=== PATIENT | female | born 1980 | race Caucasian/White ===

== ENCOUNTER 2024-10-13 15:15 | Inpatient (IN) | payer OTHER, SELFPAY ==
[2024-10-13] VITALS (10 sets, daily range): BP systolic 99–129; BP diastolic 64–78; PULSE 88–111; RESP 16–23; TEMP 36.4–37.2; O2SAT 99–100; BMI 22.8
--- NOTE | ~2024-10-13 | CT_ITS ---
EXAMINATION: CT abdomen pelvis w con DATE: 10/13/2024 17:11 INDICATION: Ascites and jaundice TECHNIQUE: Computed tomography (CT) of the abdomen and pelvis was performed with 100 mL Omnipaque-350 intravenous contrast. Automated exposure control and iterative reconstruction technique were employe d. The dose-length product was 333.53 mGy-cm. COMPARISON: None FINDINGS: Mild discoid atelectasis at the lingula. Heart size is normal. No pericardial or pleural effusion. Di ffuse hepatic steatosis with subtle liver surface nodularity consistent with cirrhosis. Mild splenome ellen measuring 14.3 cm in maximal length which along with gastroesophageal varices consistent with po rtal venous hypertension. Multiple small calcified gallstones the dependent aspect of the normal nond ilated gallbladder. No intra-axial hepatic biliary ductal dilation. Pancreas, bilateral adrenal gland s and kidneys are normal. Bowels including the appendix are normal. Moderate amount of ascites throug hout the abdomen and pelvis. Decompressed bladder is unremarkable. T-shaped IUD in expected position in the anteverted uterus. No pathologically enlarged abdominal or pelvic lymphadenopathy. Bilateral adnexa are unremarkable. Bones are unremarkable. IMPRESSION: 1. Combination of cirrhosis and diffuse hepatic steatosis. 2. Mild splenomegaly which along with gastroesophageal varices are consistent with secondary venous h ypertension. 3. Moderate amount of ascites. 4. T-shaped IUD in expected position within the anteverted uterus. Reviewed, dictated and finalized at location A. IMPRESSION: 1. Combination of cirrhosis and diffuse hepatic steatosis. 2. Mild splenomegaly which along with gastroesophageal varices are consistent w ith secondary venous hypertension. 3. Moderate amount of ascites. 4. T-shaped IUD in expected position within the anteverted uterus.
--- NOTE | ~2024-10-13 | US_ITS ---
EXAMINATION: US paracentesis abd w/image DATE: 10/14/2024 15:39 INDICATION: Ascites. Liver failure. TECHNIQUE: The procedure and its risks and benefits were discussed with the patient. Potential risks discussed included bleeding and infection. The skin was prepped and draped in sterile fashion. 1% lid ocaine was used for local anesthesia. Under ultrasound guidance, a 5 Fr catheter with trochar was adv anced into the ascites in the left lower quadrant. Fluid was aspirated into vacuum bottles. The herman ter was removed, and a dressing was applied. There were no immediate complications. FINDINGS: Ultrasound images demonstrate ascites and the catheter within the fluid. IMPRESSION: 1. Successful ultrasound-guided paracentesis yielding 1700 mL of dark ramu-colored fluid. Reviewed, dictated and finalized at location A. IMPRESSION: 1. Successful ultrasound-guided paracentesis yielding 1700 mL of dark ramu-co lored fluid.
--- NOTE | ~2024-10-13 | XR_ITS ---
CHEST RADIOGRAPH CLINICAL HISTORY: dyspnea, swelling, hx alcoholism . COMPARISON: None available TECHNIQUE: Single portable view of the chest. FINDINGS The cardiomediastinal silhouette is unremarkable. The lungs are clear. Possible acute / subacute fracture deformity within the posterior margin of the right seventh rib. IMPRESSION: No focal infiltrate or effusion. Reviewed, dictated and finalized at location A.
--- NOTE | 2024-10-13 15:26 | ECG_ITS ---
Test Date: 2024-10-13 16:27:51 Measurements Intervals [place] Rate: 114 P: 34 TN: 119 QRS: 54 QRSD: 86 T: 53 QT: 335 QTc: 462 Interpretive Statements SINUS TACHYCARDIA WITH SHORT TN INTERVAL BASELINE WANDER- V2 ABNORMAL ECG No previous ECG available for comparison Electronically Signed On 10-13-2024 17:05:24 CDT by Barron Mock D.O.
--- NOTE | 2024-10-13 15:28 | ED.ABDPAIN ---
HPI - Abdominal Pain General Chief Complaint: Abdominal Pain <Susy Iqbal PA-C - Last Filed: 10/13/24 15:32> Stated Complaint: abd swelling <Susy Iqbal PA-C - Last Filed: 10/13/24 15:32> Time Seen by Provider: 10/13/24 17:08 <Susy Iqbal PA-C - Last Filed: 10/13/24 15:32> Focused HPI: 43-year-old female a reported history of alcohol abuse presents to the emergency department for jaundice for the past 2 weeks and abdominal bloating for the past week. She is also reporting shortness of breath and swelling to her lower extremities. She denies fever but endorses chills. States she is having abdominal discomfort due to the swelling but denies any focal pain. Patient states she was drinking a 5th a day with case of beer since she about 24 old, has been trying wean herself off. States she was or taking 4 shots a day for several months and then stopped drinking alcohol a day and half ago. She is reporting tremors. She denies headache, nausea or vomiting, hallucinations, seizure activity. She does endorse a history of alcohol withdrawal and hallucinations but denies seizures with alcohol withdrawal. She states she was told she needed to follow-up with a liver specialist by her PCP would he has not made an appointment. She states she is unsure if she has any no liver disease. GENERAL: Ill-appearing, jaundice, scleral icterus, coarse tremors at rest. CIWA is 12 HEAD: Normocephalic, atraumatic. CHEST: Clear to auscultation. ?No respiratory distress. ABD: Abdomen distended, mild tenderness in the epigastrium, no rebound or rigidity. No CVA tenderness HEART: Regular rate and rhythm.? NEURO: ?Alert and oriented x3. Patient screened in triage and initial orders placed.? ?Additional care and disposition to be based upon?diagnostic testing and treatment. <Susy Iqbal PA-C - Last Filed: 10/13/24 15:32> Focused HPI: 43-year-old female a reported history of alcohol abuse presents to the emergency department for jaundice for the past 2 weeks and abdominal bloating for the past week. She is also reporting shortness of breath and swelling to her lower extremities. She denies fever but endorses chills. States she is having abdominal discomfort due to the swelling but denies any focal pain. Patient states she was drinking a 5th a day with case of beer since she about 24 old, has been trying wean herself off. States she was taking 4 shots a day for several months and then stopped drinking alcohol a day and half ago. She is reporting tremors. She denies headache, nausea or vomiting, hallucinations, seizure activity. She does endorse a history of alcohol withdrawal and hallucinations but denies seizures with alcohol withdrawal. She states she was told she needed to follow-up with a liver specialist by her PCP would he has not made an appointment. She states she has no known liver disease. GENERAL: Ill-appearing, jaundice, scleral icterus, coarse tremors at rest. CIWA is 12 HEAD: Normocephalic, atraumatic. CHEST: Clear to auscultation. ?No respiratory distress. ABD: Abdomen distended, mild tenderness in the epigastrium, no rebound or rigidity. No CVA tenderness HEART: Regular rate and rhythm.? NEURO: ?Alert and oriented x3. Patient screened in triage and initial orders placed.? ?Additional care and disposition to be based upon?diagnostic testing and treatment. <Bethany Patterson PA-C - Last Filed: 10/14/24 02:26> Related Data Home Medications: Home Medications ?Medication ?Instructions ?Recorded ?Confirmed ?Last Taken ?Type multivitamin (Daily Multi-Vitamin 1 tablet PO DAILY 10/13/24 10/13/24 10/12/24 21:00 History tablet) <Susy Iqbal PA-C - Last Filed: 10/13/24 15:32> Allergies/Adverse Reactions: Allergies Allergy/AdvReac Type Severity Reaction Status Date / Time codeine Allergy Unknown Nausea and Verified 10/13/24 16:23 Vomiting <Susy Iqbal PA-C - Last Filed: 10/13/24 15:32> Review of Systems Review of Systems: All systems reviewed & are unremarkable except as noted in HPI and below <Bethany Patterson PA-C - Last Filed: 10/14/24 02:26> [facility] Past Medical History Medical History: Medical History (Updated 10/14/24 @ 02:40 by Karen Chandler DO) Continuous tobacco abuse History of alcohol abuse <Susy Iqbal PA-C - Last Filed: 10/13/24 15:32> Surgical History Surgical History: Surgical History (Updated 10/14/24 @ 02:08 by Karen Chandler DO) No history of previous surgery <Susy Iqbal PA-C - Last Filed: 10/13/24 15:32> Family History Family History: Family History (Updated 10/14/24 @ 02:29 by Karen Chandler DO) Mother Psychiatric illness History of bowel resection Father Unknown family medical history Grandparent Alcoholism <Susy Iqbal PA-C - Last Filed: 10/13/24 15:32> Social History Social History: Social History (Updated 10/14/24 @ 02:14 by Karen Chandler DO) Social History: The patient has had history of heavy alcohol use since early teens. She has smoked up to a pack a cigarettes per day since she was 18 but has cut back to 0.5 packs per day. She has 1 adult daughter. Code status: Full code Surrogate decision maker: Marino Garay (significant other) Smoking packs per day: 0.5 Smoking cigarettes per day: 10.0 Years smoked: 25 Smoking pack-years: 12.50 Smoking status: Current every day smoker Tobacco type: cigarettes Second hand tobacco smoke exposure: Yes Alcohol intake: current Drinks per week: 28 Substance use: never Do You Feel Safe in your Home?: Yes Lack of Transportation: YES Lack of Food: Never True Current Housing: I Have Housing Concerned About Future Housing: No Difficulty Paying Gas/Electric Bills: No Difficulty Paying for Meds: No Currently Unemployed: No Education: Trade/Vocational Certificate Difficulty w/ Childcare or Family Care: No Additional living arrangements comments: She lives with her boyfriend of 9 years and her 21-year-old daughter. She has a medium-sized dog. 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 Spiritual care concerns: Yes <Susy Iqbal PA-C - Last Filed: 10/13/24 15:32> Exam Narrative: GENERAL: Chronically ill-appearing, well-nourished, and in no acute distress. HEAD: Normocephalic, atraumatic. EYES: EOMI. Scleral icterus ENT: Nares clear, no rhinorrhea or epistaxis. Mucous membranes moist. Oropharynx without tonsillar hypertrophy exudate or other lesions. CHEST: Clear to auscultation. No respiratory distress. No wheezes rales or rhonchi HEART: Regular rate and rhythm. No murmur heard. Normal peripheral pulses. ABDOMEN: Soft, nontender, normal active bowel sounds. Distended EXTREMITIES: Normal range of motion. No edema. SKIN: Warm, dry. Jaundice NEURO: No focal deficits. Alert and oriented x3. PSYCH: Normal mood and affect <Bethany Patterson PA-C - Last Filed: 10/14/24 02:26> Course Course Emergency Course: Patient updated on her workup and need for admission <Bethany Patterson PA-C - Last Filed: 10/14/24 02:26> REAL ESTATE AGENT/BROKER/PA Physician Supervision For this patient encounter, I reviewed the REAL ESTATE AGENT/BROKER or PA documentation, treatment plan, and medical decision making; and I had [id number] time with this patient. <Anthony Eden MD - Last Filed: 10/14/24 02:56> Consultations Consultation #1: Spoke with Dr. Kiran about patient and workup. Would like paracentesis ordered with studies, he will give further recommendations from there. He will consult <Bethany Patterson PA-C - Last Filed: 10/14/24 02:26> Date: 10/13/24 <Bethany Patterson PA-C - Last Filed: 10/14/24 02:26> Consultation #2: Spoke with hospitalist about patient and workup who accepts admission <Bethany Patterson PA-C - Last Filed: 10/14/24 02:26> Date: 10/13/24 <Bethany Patterson PA-C - Last Filed: 10/14/24 02:26> Vital Signs Vital signs: Vital Signs Temperature 97.5 F L 10/13/24 15:22 Pulse Rate 111 H 10/13/24 15:22 Respiratory Rate 16 10/13/24 15:22 Blood Pressure 99/64 L 10/13/24 15:22 Pulse Oximetry 100 10/13/24 15:22 Oxygen Delivery Room Air 10/13/24 15:22 Temperature 99 F 10/14/24 00:00 Pulse Rate 101 H 10/14/24 02:00 Respiratory Rate 20 10/14/24 00:00 Blood Pressure 109/67 10/14/24 00:00 Pulse Oximetry 99 10/14/24 00:00 Oxygen Delivery Room Air 10/14/24 00:00 <Susy Iqbal PA-C - Last Filed: 10/13/24 15:32> Vital Signs Temperature 97.5 F L 10/13/24 15:22 Pulse Rate 111 H 10/13/24 15:22 Respiratory Rate 16 10/13/24 15:22 Blood Pressure 99/64 L 10/13/24 15:22 Pulse Oximetry 100 10/13/24 15:22 Oxygen Delivery Room Air 10/13/24 15:22 Temperature 99 F 10/14/24 00:00 Pulse Rate 101 H 10/14/24 02:00 Respiratory Rate 20 10/14/24 00:00 Blood Pressure 109/67 10/14/24 00:00 Pulse Oximetry 99 10/14/24 00:00 Oxygen Delivery Room Air 10/14/24 00:00 <Bethany Patterson PA-C - Last Filed: 10/14/24 02:26> Vital Signs Temperature 97.5 F L 10/13/24 15:22 Pulse Rate 111 H 10/13/24 15:22 Respiratory Rate 16 10/13/24 15:22 Blood Pressure 99/64 L 10/13/24 15:22 Pulse Oximetry 100 10/13/24 15:22 Oxygen Delivery Room Air 10/13/24 15:22 Temperature 99 F 10/14/24 00:00 Pulse Rate 101 H 10/14/24 02:00 Respiratory Rate 20 10/14/24 00:00 Blood Pressure 109/67 10/14/24 00:00 Pulse Oximetry 99 10/14/24 00:00 Oxygen Delivery Room Air 10/14/24 00:00 <Anthony Eden MD - Last Filed: 10/14/24 02:56> MDM - Abdominal Pain MDM Narrative Medical decision making narrative: Patient presents to the emergency department for worsening abdominal swelling and jaundice ongoing over the last several weeks. History of alcohol abuse. No previous known history of liver failure. She is afebrile and nontoxic appearing. Tachycardic upon arrival, this normalized without intervention. Blood pressure is stable. Cbc without leukocytosis. Hemoglobin is 10.5, platelets are 124. PT 16.2, INR 1.3 metabolic panel with total bili of 18.3, AST of 364, ALT 91. Lipase is normal. CT abdomen and pelvis shows cirrhosis and diffuse hepatic steatosis. Mild splenomegaly with gastroesophageal varices. Moderate amount of ascites. Spoke with Dr. Kiran about patient and workup. Would like paracentesis ordered with studies, he will give further recommendations from there. He will consult. Spoke with hospitalist about patient and workup who accepts admission <Bethany Patterson PA-C - Last Filed: 10/14/24 02:26> Differential Diagnosis Differential diagnosis: Likely pancreatitis and other (liver failure, alcohol abuse, alcohol withdrawal) <Bethany Patterson PA-C - Last Filed: 10/14/24 02:26> Lab Data Attestation: I reviewed the patient's lab results. <Bethany Patterson PA-C - Last Filed: 10/14/24 02:26> Result diagrams: 10/13/24 16:06 10/13/24 16:06 <Susy Iqbal PA-C - Last Filed: 10/13/24 15:32> Labs: Lab Results 10/13/24 10/13/24 10/13/24 Range/Units 16:06 16:29 16:34 WBC 7.9 (4.5-10.0) K/mm3 RBC 2.85 L (4.2-5.4) M/mm3 Hgb 10.5 L (12.0-15.0) g/dL Hct 31.7 L (37.0-47.0) % MCV 111.2 H (80-100) fl MCH 36.8 H (26-34) pg MCHC 33.1 (32-36) g/dl RDW 22.2 H (11.5-14.5) % Plt Count 124 L (150-375) k/mm3 MPV 11.5 H (7.4-10.4) fl Immature Gran % (Auto) Not Reportable Neut % (Auto) Not Reportable Lymph % (Auto) Not Reportable [place] % (Auto) Not Reportable Eos % (Auto) Not Reportable Baso % (Auto) Not Reportable Lymph # (Auto) Not Reportable [place] # (Auto) Not Reportable Eos # (Auto) Not Reportable Baso # (Auto) Not Reportable Abs Immat Gran (auto) Not Reportable Absolute Neuts (auto) Not Reportable Absolute Nucleated RBC Not Reportable Total Counted 100 Neutrophils % (Manual) 74 H (46-73) % Band Neutrophils % 5 (0-6) % Lymphocytes % (Manual) 12.0 L (18-44) % Monocytes % (Manual) 7 (3-9) % Eosinophils % (Manual) 2 (0-4) % Nucleated RBC % Not Reportable Abs Neuts (Manual) 6.24 (1.3-6.7) K/mm3 Abs Lymphs (Manual) 0.94 L (1.1-4.5) K/mm3 Abs Monocytes (Manual) 0.55 (0.1-0.90) K/mm3 Absolute Eos (Manual) 0.15 (0.02-0.50) K/mm3 Platelet Estimate Adequate (Adequate) Anisocytosis 3+ Macrocytosis 2+ (NORMAL) Schistocytes None seen PT 16.2 H (11.1-14.7) Seconds INR 1.3 APTT 39.4 H (22.3-36.8) Seconds Sodium 133 L (137-145) mmol/L Potassium 4.1 (3.4-5.0) mmol/L Chloride 99 (98-107) mmol/L Carbon Dioxide 23 (22-30) mmol/L Anion Gap 11 (4-12) mmol/L BUN 7 (7-17) mg/dL Creatinine 0.52 L (0.7-1.0) mg/dL Estim Creat Clear Calc 94 ml/min Estimated GFR > 60 (59 - ) Glucose 82 (65-110) mg/dL Lactic Acid 1.7 (0.7-2.0) mmol/L Calcium 9.1 (8.4-10.2) mg/dL Phosphorus 3.1 (2.5-4.5) mg/dL Magnesium 2.1 (1.6-2.3) mg/dL Total Bilirubin 18.3 H (0.2-1.3) mg/dL AST 364 H (14-36) U/L ALT 91 H (6-35) U/L Alkaline Phosphatase 371 H (38-126) U/L Troponin I < 0.012 (0.000-0.034) ng/mL NT-Pro-B Natriuret Pep 128 H (19.9-100) pg/mL Total Protein 7.3 (6.3-8.2) g/dL Albumin 3.2 L (3.5-5.1) g/dL Lipase 110 (23-300) U/L Urine Color Dark red H (Yellow) Urine Appearance Clear (Clear) Urine pH TNP Ur Specific [place] TNP Urine Protein TNP Urine Glucose (UA) TNP Urine Ketones TNP Ur Blood (Man) TNP Urine Nitrate TNP Urine Bilirubin TNP Urine Urobilinogen TNP Leukocyte Esterase Rfl TNP Urine RBC 0-2 (0-2) /hpf Urine WBC 0-5 (0-3) /hpf Ur Squamous Epith Cells Few (Few) /hpf Urine Bacteria 4+ H (None) /hpf POC Urine HCG, Qual Negative (Negative) Ethyl Alcohol < 10 (<10) mg/dL <Susy Iqbal PA-C - Last Filed: 10/13/24 15:32> Lab Results 10/13/24 10/13/24 10/13/24 Range/Units 16:06 16:29 16:34 WBC 7.9 (4.5-10.0) K/mm3 RBC 2.85 L (4.2-5.4) M/mm3 Hgb 10.5 L (12.0-15.0) g/dL Hct 31.7 L (37.0-47.0) % MCV 111.2 H (80-100) fl MCH 36.8 H (26-34) pg MCHC 33.1 (32-36) g/dl RDW 22.2 H (11.5-14.5) % Plt Count 124 L (150-375) k/mm3 MPV 11.5 H (7.4-10.4) fl Immature Gran % (Auto) Not Reportable Neut % (Auto) Not Reportable Lymph % (Auto) Not Reportable [place] % (Auto) Not Reportable Eos % (Auto) Not Reportable Baso % (Auto) Not Reportable Lymph # (Auto) Not Reportable [place] # (Auto) Not Reportable Eos # (Auto) Not Reportable Baso # (Auto) Not Reportable Abs Immat Gran (auto) Not Reportable Absolute Neuts (auto) Not Reportable Absolute Nucleated RBC Not Reportable Total Counted 100 Neutrophils % (Manual) 74 H (46-73) % Band Neutrophils % 5 (0-6) % Lymphocytes % (Manual) 12.0 L (18-44) % Monocytes % (Manual) 7 (3-9) % Eosinophils % (Manual) 2 (0-4) % Nucleated RBC % Not Reportable Abs Neuts (Manual) 6.24 (1.3-6.7) K/mm3 Abs Lymphs (Manual) 0.94 L (1.1-4.5) K/mm3 Abs Monocytes (Manual) 0.55 (0.1-0.90) K/mm3 Absolute Eos (Manual) 0.15 (0.02-0.50) K/mm3 Platelet Estimate Adequate (Adequate) Anisocytosis 3+ Macrocytosis 2+ (NORMAL) Schistocytes None seen PT 16.2 H (11.1-14.7) Seconds INR 1.3 APTT 39.4 H (22.3-36.8) Seconds Sodium 133 L (137-145) mmol/L Potassium 4.1 (3.4-5.0) mmol/L Chloride 99 (98-107) mmol/L Carbon Dioxide 23 (22-30) mmol/L Anion Gap 11 (4-12) mmol/L BUN 7 (7-17) mg/dL Creatinine 0.52 L (0.7-1.0) mg/dL Estim Creat Clear Calc 94 ml/min Estimated GFR > 60 (59 - ) Glucose 82 (65-110) mg/dL Lactic Acid 1.7 (0.7-2.0) mmol/L Calcium 9.1 (8.4-10.2) mg/dL Phosphorus 3.1 (2.5-4.5) mg/dL Magnesium 2.1 (1.6-2.3) mg/dL Total Bilirubin 18.3 H (0.2-1.3) mg/dL AST 364 H (14-36) U/L ALT 91 H (6-35) U/L Alkaline Phosphatase 371 H (38-126) U/L Troponin I < 0.012 (0.000-0.034) ng/mL NT-Pro-B Natriuret Pep 128 H (19.9-100) pg/mL Total Protein 7.3 (6.3-8.2) g/dL Albumin 3.2 L (3.5-5.1) g/dL Lipase 110 (23-300) U/L Urine Color Dark red H (Yellow) Urine Appearance Clear (Clear) Urine pH TNP Ur Specific [place] TNP Urine Protein TNP Urine Glucose (UA) TNP Urine Ketones TNP Ur Blood (Man) TNP Urine Nitrate TNP Urine Bilirubin TNP Urine Urobilinogen TNP Leukocyte Esterase Rfl TNP Urine RBC 0-2 (0-2) /hpf Urine WBC 0-5 (0-3) /hpf Ur Squamous Epith Cells Few (Few) /hpf Urine Bacteria 4+ H (None) /hpf POC Urine HCG, Qual Negative (Negative) Ethyl Alcohol < 10 (<10) mg/dL <Bethany Patterson PA-C - Last Filed: 10/14/24 02:26> Lab Results 10/13/24 10/13/24 10/13/24 Range/Units 16:06 16:29 16:34 WBC 7.9 (4.5-10.0) K/mm3 RBC 2.85 L (4.2-5.4) M/mm3 Hgb 10.5 L (12.0-15.0) g/dL Hct 31.7 L (37.0-47.0) % MCV 111.2 H (80-100) fl MCH 36.8 H (26-34) pg MCHC 33.1 (32-36) g/dl RDW 22.2 H (11.5-14.5) % Plt Count 124 L (150-375) k/mm3 MPV 11.5 H (7.4-10.4) fl Immature Gran % (Auto) Not Reportable Neut % (Auto) Not Reportable Lymph % (Auto) Not Reportable [place] % (Auto) Not Reportable Eos % (Auto) Not Reportable Baso % (Auto) Not Reportable Lymph # (Auto) Not Reportable [place] # (Auto) Not Reportable Eos # (Auto) Not Reportable Baso # (Auto) Not Reportable Abs Immat Gran (auto) Not Reportable Absolute Neuts (auto) Not Reportable Absolute Nucleated RBC Not Reportable Total Counted 100 Neutrophils % (Manual) 74 H (46-73) % Band Neutrophils % 5 (0-6) % Lymphocytes % (Manual) 12.0 L (18-44) % Monocytes % (Manual) 7 (3-9) % Eosinophils % (Manual) 2 (0-4) % Nucleated RBC % Not Reportable Abs Neuts (Manual) 6.24 (1.3-6.7) K/mm3 Abs Lymphs (Manual) 0.94 L (1.1-4.5) K/mm3 Abs Monocytes (Manual) 0.55 (0.1-0.90) K/mm3 Absolute Eos (Manual) 0.15 (0.02-0.50) K/mm3 Platelet Estimate Adequate (Adequate) Anisocytosis 3+ Macrocytosis 2+ (NORMAL) Schistocytes None seen PT 16.2 H (11.1-14.7) Seconds INR 1.3 APTT 39.4 H (22.3-36.8) Seconds Sodium 133 L (137-145) mmol/L Potassium 4.1 (3.4-5.0) mmol/L Chloride 99 (98-107) mmol/L Carbon Dioxide 23 (22-30) mmol/L Anion Gap 11 (4-12) mmol/L BUN 7 (7-17) mg/dL Creatinine 0.52 L (0.7-1.0) mg/dL Estim Creat Clear Calc 94 ml/min Estimated GFR > 60 (59 - ) Glucose 82 (65-110) mg/dL Lactic Acid 1.7 (0.7-2.0) mmol/L Calcium 9.1 (8.4-10.2) mg/dL Phosphorus 3.1 (2.5-4.5) mg/dL Magnesium 2.1 (1.6-2.3) mg/dL Total Bilirubin 18.3 H (0.2-1.3) mg/dL AST 364 H (14-36) U/L ALT 91 H (6-35) U/L Alkaline Phosphatase 371 H (38-126) U/L Troponin I < 0.012 (0.000-0.034) ng/mL NT-Pro-B Natriuret Pep 128 H (19.9-100) pg/mL Total Protein 7.3 (6.3-8.2) g/dL Albumin 3.2 L (3.5-5.1) g/dL Lipase 110 (23-300) U/L Urine Color Dark red H (Yellow) Urine Appearance Clear (Clear) Urine pH TNP Ur Specific [place] TNP Urine Protein TNP Urine Glucose (UA) TNP Urine Ketones TNP Ur Blood (Man) TNP Urine Nitrate TNP Urine Bilirubin TNP Urine Urobilinogen TNP Leukocyte Esterase Rfl TNP Urine RBC 0-2 (0-2) /hpf Urine WBC 0-5 (0-3) /hpf Ur Squamous Epith Cells Few (Few) /hpf Urine Bacteria 4+ H (None) /hpf POC Urine HCG, Qual Negative (Negative) Ethyl Alcohol < 10 (<10) mg/dL <Anthony Eden MD - Last Filed: 10/14/24 02:56> Imaging Data Radiologist's impression: ITS Impressions Chest X-Ray 10/13/24 16:26 IMPRESSION: No focal infiltrate or effusion. Abdomen/Pelvis CT 10/13/24 17:17 IMPRESSION: 1. Combination of cirrhosis and diffuse hepatic steatosis. 2. Mild splenomegaly which along with gastroesophageal varices are consistent with secondary venous hypertension. 3. Moderate amount of ascites. 4. T-shaped IUD in expected position within the anteverted uterus. <Susy Iqbal PA-C - Last Filed: 10/13/24 15:32> ITS Impressions Chest X-Ray 10/13/24 16:26 IMPRESSION: No focal infiltrate or effusion. Abdomen/Pelvis CT 10/13/24 17:17 IMPRESSION: 1. Combination of cirrhosis and diffuse hepatic steatosis. 2. Mild splenomegaly which along with gastroesophageal varices are consistent with secondary venous hypertension. 3. Moderate amount of ascites. 4. T-shaped IUD in expected position within the anteverted uterus. <Bethany Patterson PA-C - Last Filed: 10/14/24 02:26> ITS Impressions Chest X-Ray 10/13/24 16:26 IMPRESSION: No focal infiltrate or effusion. Abdomen/Pelvis CT 10/13/24 17:17 IMPRESSION: 1. Combination of cirrhosis and diffuse hepatic steatosis. 2. Mild splenomegaly which along with gastroesophageal varices are consistent with secondary venous hypertension. 3. Moderate amount of ascites. 4. T-shaped IUD in expected position within the anteverted uterus. <Anthony Eden MD - Last Filed: 10/14/24 02:56> Critical Care Time Critical Care Time Critical Care Time: No <Bethany Patterson PA-C - Last Filed: 10/14/24 02:26> Discharge Plan Discharge Clinical Impression: Acute alcoholic hepatitis, Alcoholic cirrhosis of liver with ascites Alcohol withdrawal Qualifiers: Complication of substance-induced condition: uncomplicated Qualified Code(s): F10.930 - Alcohol use, unspecified with withdrawal, uncomplicated <Susy Iqbal PA-C - Last Filed: 10/13/24 15:32> Patient Disposition: Still a Patient <Susy Iqbal PA-C - Last Filed: 10/13/24 15:32> Condition: Serious <Susy Iqbal PA-C - Last Filed: 10/13/24 15:32>
[2024-10-13 16:13] LABS: Hematocrit 31.7 % (37.0-47.0); Hemoglobin 10.5 g/dL (12.0-15.0); Mean Corpuscular HGB Conc 33.1 g/dl (32-36); Mean Corpuscular Hemoglobin 36.8 pg (26-34); Mean Corpuscular Volume 111.2 fl (80-100); Mean Platelet Volume 11.5 fl (7.4-10.4); Platelet Count Result 124 k/mm3 (150-375); Red Blood Count 2.85 M/mm3 (4.2-5.4); Red Cell Distribution Width 22.2 % (11.5-14.5); White Blood Count 7.9 K/mm3 (4.5-10.0)
[2024-10-13 16:24] LABS: INR 1.3; Prothrombin Time 16.2 Seconds (11.1-14.7)
[2024-10-13 16:25] LABS: Partial Thromboplastin Time 39.4 Seconds (22.3-36.8)
[2024-10-13] MEDS: diazePAM INJ (*CRX) 10 MG/2 ML SYRINGE 5 MG IV PUSH (16:25)
[2024-10-13] MEDS: THIAMINE HCL 200 MG/2 ML VIAL 100 MG IV PUSH (16:25)
[2024-10-13 16:26] LABS: Alanine Aminotransferase 91 U/L (6-35); Albumin Level 3.2 g/dL (3.5-5.1); Alkaline Phosphatase 371 U/L (38-126); Anion Gap 11 mmol/L (4-12); Aspartate Amino Transferase 364 U/L (14-36); Bilirubin,Total 18.3 mg/dL (0.2-1.3); Blood Urea Nitrogen 7 mg/dL (7-17); Calcium 9.1 mg/dL (8.4-10.2); Carbon Dioxide 23 mmol/L (22-30); Chloride 99 mmol/L (98-107); Estimated CRCL calculation 94 ml/min; Estimated Glomerular Filt Rate > 60; Glucose 82 mg/dL (65-110); Lipase 110 U/L (23-300); Magnesium 2.1 mg/dL (1.6-2.3); Phosphorus 3.1 mg/dL (2.5-4.5); Potassium 4.1 mmol/L (3.4-5.0); Sodium 133 mmol/L (137-145); Total Protein 7.3 g/dL (6.3-8.2)
[2024-10-13 16:28] LABS: Lactic Acid Reflex 1.7 mmol/L (0.7-2.0)
[2024-10-13 16:37] LABS: BEDSIDEPREGUCG Negative (Negative)
[2024-10-13 16:38] LABS: NT Pro B Type Natriuretic Pept 128 pg/mL (19.9-100); Troponin I < 0.012 ng/mL (0.000-0.034)
[2024-10-13 17:04] LABS: Band Neutrophils Percent 5 % (0-6); Eosinophils Absolute Manual 0.15 K/mm3 (0.02-0.50); Eosinophils Percent Manual 2 % (0-4); Lymphocytes Absolute Manual 0.94 K/mm3 (1.1-4.5); Monocytes Absolute Manual 0.55 K/mm3 (0.1-0.90); Monocytes Percent Manual 7 % (3-9); Neutrophils Absolute Manual 6.24 K/mm3 (1.3-6.7); Neutrophils Percent Manual 74 % (46-73); Platelet Estimate Adequate (Adequate); Schistocytes None Seen; Total Cells Counted 100
[2024-10-13 17:05] LABS: Anisocytosis 3+; Macrocytosis 2+ (NORMAL)
[2024-10-13 17:34] LABS: Color Urine Dark Red (Yellow)
[2024-10-13 17:37] LABS: Appearance Urine Clear (Clear)
[2024-10-13 17:40] LABS: Add Urine Microscopic? YES
[2024-10-13 17:43] LABS: RBC Urine 0-2 /hpf (0-2)
[2024-10-13 17:45] LABS: Bacteria Urine 4+ /hpf; Squamous Epithelial Cell Urine Few /hpf (Few); WBC Urine 0-5 /hpf (0-3)
[2024-10-13 18:28] LABS: Ethanol < 10 mg/dL (<10)
--- NOTE | 2024-10-13 20:45 | ADMGEN ---
This patient, Latrice Presley, was admitted to IMU Room 207-01. Patient/family oriented to hospital policies and general routines including ID bracelet, bed and alarms, visiting hours, pain management, procedures, bathroom and other care routines, personal items, smoking policy, room service/diet, and visiting hours. Information on how to activate the Rapid Response Team has been discussed. Patient/Family are encouraged to report perceived risks to care and to ask questions if they do not understand what they are told or what they should do.
[2024-10-13 21:14] LABS: Glucose Point of Care 105 mg/dl (65-105)
[2024-10-13] MEDS: PANTOPRAZOLE SODIUM IV 40 MG VIAL IV PUSH (21:47)
[2024-10-13] MEDS: PHENYTOIN SOD 250 MG/5 ML IV PUSH (22:50)
--- NOTE | 2024-10-13 23:29 | PM.IMHP ---
H&P: HPI History of Present Illness Date/Time: 10/13/24 23:29 Chief Complaint: Jaundice and abdominal swelling Narrative: 43-year-old female with a past medical history of longstanding alcohol abuse who presented to the ER with 2 weeks of jaundice and 1 week of abdominal distension. The patient reports that she started drinking alcohol at age 15. She has been drinking heavily since she was 18 and has been drinking daily since she was 24. She reports that she used to drink as much as 6-7 beers a day plus several shots of whiskey. He states that he she 6 months ago she cut back she to 4 alcoholic beverages a day to help avoid having DTs. He has her last alcoholic beverage he was on the night of the . She has noticed jaundice that started 2 weeks ago and then followed by the abdominal distension. She has some discomfort in the left lateral abdomen and in the back right flank. She denies any nausea or vomiting but she is having poor appetite. She denies any hematochezia or melena. She has not had any fevers or chills. She has noticed a rash to the dorsum of bilateral hands. She reports that her cheeks of her face have been erythematous and course in texture for about 6 months to a year. She has not had much urine output. She feels as if she may not be emptying her bladder all the way. She has had at prior episodes of alcohol withdrawal but has never had alcohol withdrawal seizures. The patient does not have a primary care physician. She stated that she thought she was having problems with her pancreas about 4 5 years ago but by the time she could actually get an appointment with a specialist her symptoms had resolved so she did not follow-up. She has had lower extremity edema that is been present for the last couple of months. She denies any confusion. Currently she was reporting some anxiety, tremors and sensitivity to bright light. She does not have a primary care physician and has not sought medical care in several years. She reports that she does not have a car which limits her ability to go to appointments. Review of Systems Review of Systems: 12 systems were reviewed with pertinent positives and negatives per HPI. Except as documented in the HPI, all other systems were reviewed and are negative. [facility] Past Medical History Medical History (Updated 10/14/24 @ 02:40 by Karen Chandler DO) Continuous tobacco abuse History of alcohol abuse Surgical History Surgical History (Updated 10/14/24 @ 02:08 by Karen Chandler DO) No history of previous surgery Family History Family History (Updated 10/14/24 @ 02:29 by Karen Chandler DO) Mother Psychiatric illness History of bowel resection Father Unknown family medical history Grandparent Alcoholism Social History Social History (Updated 10/14/24 @ 02:14 by Karen Chandler DO) Social History: The patient has had history of heavy alcohol use since early teens. She has smoked up to a pack a cigarettes per day since she was 18 but has cut back to 0.5 packs per day. She has 1 adult daughter. Code status: Full code Surrogate decision maker: Marino Garay (significant other) Smoking packs per day: 0.5 Smoking cigarettes per day: 10.0 Years smoked: 25 Smoking pack-years: 12.50 Smoking status: Current every day smoker Tobacco type: cigarettes Second hand tobacco smoke exposure: Yes Alcohol intake: current Drinks per week: 28 Substance use: never Do You Feel Safe in your Home?: Yes Lack of Transportation: YES Lack of Food: Never True Current Housing: I Have Housing Concerned About Future Housing: No Difficulty Paying Gas/Electric Bills: No Difficulty Paying for Meds: No Currently Unemployed: No Education: Trade/Vocational Certificate Difficulty w/ Childcare or Family Care: No Additional living arrangements comments: She lives with her boyfriend of 9 years and her 21-year-old daughter. She has a medium-sized dog. 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 Spiritual care concerns: Yes Meds Home Medications and Allergies Home Medications ?Medication ?Instructions ?Recorded ?Confirmed ?Type multivitamin (Daily Multi-Vitamin 1 tablet PO DAILY 10/13/24 10/13/24 History tablet) Allergies Allergy/AdvReac Type Severity Reaction Status Date / Time codeine Allergy Unknown Nausea and Verified 10/13/24 16:23 Vomiting Vital Signs Vital Signs - 24 hr 10/13/24 15:22 10/13/24 16:45 10/13/24 18:00 Temperature 97.5 F L Pulse Rate 111 H 107 H 93 Pulse Rate [Monitor] Respiratory Rate 16 23 H 19 Blood Pressure 99/64 L 114/75 101/76 Pulse Oximetry 100 100 100 Oxygen Delivery Room Air 10/13/24 19:00 10/13/24 19:46 10/13/24 20:00 Temperature Pulse Rate 90 99 Pulse Rate [Monitor] 100 Respiratory Rate 20 22 H Blood Pressure 112/71 114/78 Pulse Oximetry 100 99 Oxygen Delivery 10/13/24 20:43 10/13/24 21:08 Temperature 98.4 F 99 F Pulse Rate 99 88 Pulse Rate [Monitor] Respiratory Rate 22 H 22 H Blood Pressure 114/78 129/69 Pulse Oximetry 99 99 Oxygen Delivery Exam Narrative: Weight 60.3 kg BMI 22.8 Const: Other: No acute distress, appears stated age HENMT: Other: Mucous membranes are tacky, no oral pharyngeal erythema, no petechiae Eyes: Other: Marked scleral icterus, positive conjunctival pallor, pupils are equal and reactive Neck: Other: No JVD, no lymphadenopathy Resp: Other: Clear to auscultation bilaterally, no increased work of breathing Cardio: Other: Sinus tachycardia, 2+ bilateral radial pedal pulses, no murmur GI: Other: Distended, tight, positive fluid wave, caput medusa Skin: Other: Marked jaundice, cap of induced across the abdomen, no petechiae, no bruising Neuro: Other: Alert oriented x4, speech is clear, no facial asymmetry, moves all extremities equally, asterixis, marked tremor when trying to do activities Extrem: Other: 1+ pitting edema bilateral lower extremity edema, no clubbing, no cyanosis, moves all extremities equally Psych: Other: Mildly anxious, otherwise pleasant and cooperative, good judgment and insight H&P: Results Labs Labs: Laboratory Tests 10/13/24 16:06 10/13/24 16:06 10/13/24 10/13/24 10/13/24 16:06 16:29 16:34 WBC 7.9 RBC 2.85 L Hgb 10.5 L Hct 31.7 L MCV 111.2 H MCH 36.8 H MCHC 33.1 RDW 22.2 H Plt Count 124 L MPV 11.5 H Immature Gran % (Auto) Not Reportable Neut % (Auto) Not Reportable Lymph % (Auto) Not Reportable George % (Auto) Not Reportable Eos % (Auto) Not Reportable Baso % (Auto) Not Reportable Lymph # (Auto) Not Reportable George # (Auto) Not Reportable Eos # (Auto) Not Reportable Baso # (Auto) Not Reportable Abs Immat Gran (auto) Not Reportable Absolute Neuts (auto) Not Reportable Absolute Nucleated RBC Not Reportable Total Counted 100 Neutrophils % (Manual) 74 H Band Neutrophils % 5 Lymphocytes % (Manual) 12.0 L Monocytes % (Manual) 7 Eosinophils % (Manual) 2 Nucleated RBC % Not Reportable Abs Neuts (Manual) 6.24 Abs Lymphs (Manual) 0.94 L Abs Monocytes (Manual) 0.55 Absolute Eos (Manual) 0.15 Platelet Estimate Adequate Anisocytosis 3+ Macrocytosis 2+ Schistocytes None seen PT 16.2 H INR 1.3 APTT 39.4 H Sodium 133 L Potassium 4.1 Chloride 99 Carbon Dioxide 23 Anion Gap 11 BUN 7 Creatinine 0.52 L Estim Creat Clear Calc 94 Estimated GFR > 60 Glucose 82 POC Capillary Glucose Lactic Acid 1.7 Calcium 9.1 Phosphorus 3.1 Magnesium 2.1 Total Bilirubin 18.3 H AST 364 H ALT 91 H Alkaline Phosphatase 371 H Troponin I < 0.012 NT-Pro-B Natriuret Pep 128 H Total Protein 7.3 Albumin 3.2 L Lipase 110 Urine Color Dark red H Urine Appearance Clear Urine pH TNP Ur Specific [place] TNP Urine Protein TNP Urine Glucose (UA) TNP Urine Ketones TNP Ur Blood (Man) TNP Urine Nitrate TNP Urine Bilirubin TNP Urine Urobilinogen TNP Leukocyte Esterase Rfl TNP Urine RBC 0-2 Urine WBC 0-5 Ur Squamous Epith Cells Few Urine Bacteria 4+ H POC Urine HCG, Qual Negative Ethyl Alcohol < 10 10/13/24 21:12 WBC RBC Hgb Hct MCV MCH MCHC RDW Plt Count MPV Immature Gran % (Auto) Neut % (Auto) Lymph % (Auto) George % (Auto) Eos % (Auto) Baso % (Auto) Lymph # (Auto) George # (Auto) Eos # (Auto) Baso # (Auto) Abs Immat Gran (auto) Absolute Neuts (auto) Absolute Nucleated RBC Total Counted Neutrophils % (Manual) Band Neutrophils % Lymphocytes % (Manual) Monocytes % (Manual) Eosinophils % (Manual) Nucleated RBC % Abs Neuts (Manual) Abs Lymphs (Manual) Abs Monocytes (Manual) Absolute Eos (Manual) Platelet Estimate Anisocytosis Macrocytosis Schistocytes PT INR APTT Sodium Potassium Chloride Carbon Dioxide Anion Gap BUN Creatinine Estim Creat Clear Calc Estimated GFR Glucose POC Capillary Glucose 105 Lactic Acid Calcium Phosphorus Magnesium Total Bilirubin AST ALT Alkaline Phosphatase Troponin I NT-Pro-B Natriuret Pep Total Protein Albumin Lipase Urine Color Urine Appearance Urine pH Ur Specific [place] Urine Protein Urine Glucose (UA) Urine Ketones Ur Blood (Man) Urine Nitrate Urine Bilirubin Urine Urobilinogen Leukocyte Esterase Rfl Urine RBC Urine WBC Ur Squamous Epith Cells Urine Bacteria POC Urine HCG, Qual Ethyl Alcohol Impressions Chest X-Ray 10/13/24 16:26 IMPRESSION: No focal infiltrate or effusion. Abdomen/Pelvis CT 10/13/24 17:17 IMPRESSION: 1. Combination of cirrhosis and diffuse hepatic steatosis. 2. Mild splenomegaly which along with gastroesophageal varices are consistent with secondary venous hypertension. 3. Moderate amount of ascites. 4. T-shaped IUD in expected position within the anteverted uterus. EKG:Test Date: 2024-10-13 16:27:51 Measurements Intervals [place] Rate: 114 P: 34 SC: 119 QRS: 54 QRSD: 86 T: 53 QT: 335 QTc: 462 Interpretive Statements SINUS TACHYCARDIA WITH SHORT SC INTERVAL BASELINE WANDER- V2 ABNORMAL ECG No previous ECG available for comparison All imaging and EKGs personally reviewed and interpreted. And unless stated otherwise agree with radiologic and cardiology interpretation. Assessment and Plan Assessment and plan (1) Acute alcoholic hepatitis: Code(s): K70.10 - Alcoholic hepatitis without ascites Status: Acute (2) Alcohol withdrawal: Qualifiers: Complication of substance-induced condition: uncomplicated Qualified Code(s): F10.930 - Alcohol use, unspecified with withdrawal, uncomplicated Code(s): F10.939 - Alcohol use, unspecified with withdrawal, unspecified Status: Acute (3) Alcoholic cirrhosis of liver with ascites: Code(s): K70.31 - Alcoholic cirrhosis of liver with ascites Status: Acute (4) Continuous tobacco abuse: Code(s): Z72.0 - Tobacco use Status: Acute Plan Patient has acute alcoholic hepatitis complicating is likely chronic cirrhosis new development of ascites. Patient's liver disease has become acutely decompensated. She denies any fevers, chills the but has been having some mild left lateral abdominal pain and right flank pain. She denies any confusion. Her white count was normal. Will start the patient on spironolactone. Will order consult for IR for ultrasound-guided paracentesis diagnostic and therapeutic. Patient does not have overt evidence of SBP. Will hold off on antibiotic therapy. Coag panels have been obtained and are normal. She does have associated transaminitis and marked hyperbilirubinemia. CT also demonstrates evidence of esophageal varices. Will place patient on Protonix IV b.i.d.. Will monitor strict I&O's. The patient is also suffering from acute alcohol withdrawal. The patient's CIWA score climbed to 16 by the time of my evaluation. She was subsequently given 250 mg of IV phenobarbital with significant improvement in her symptoms. Her CIWA score was down to 7. A 2nd dose of phenobarbital was given 1 hour later with good response. Will place the patient on seizure precautions. Will check CIWA scores every 4 hours or more frequently depending on if CIWA score continues to climb. Will start the patient on p.o. Librium but will need to monitor closely for toxicity given hepatic dysfunction. Will also add Ativan as needed based on CIWA scores. Patient has received thiamine supplementation. Will check B12 and folic acid level with a.m. labs. The patient states that she is ready to quit drinking alcohol and has no intention of starting drinking again. She care coordination consult. The patient does smoking request nicotine patch. She is not ready to consider smoking cessation at this time. 45 minutes spent in critical care activities. Due to a high probability of clinically significant, life threatening deterioration, the patient required my highest level of preparedness to intervene emergently and I personally spent this critical care time directly and personally managing the patient. This critical care time included obtaining a history; examining the patient; pulse oximetry; ordering and review of studies; arranging urgent treatment with development of a management plan; evaluation of patient's response to treatment; frequent reassessment; and discussions with other providers. It was exclusive of separately billable procedures and treating other patients and teaching time. Please see Assessment and Plan section and the rest of the note for further information on patient assessment and treatment. Quality VTE Prophylaxis VTE prophylaxis: mechanical ordered (SCDs) Hospitalist MIPS Advance Care Plan I have confirmed that the patient's Advanced Care Plan is present, code status is documented, or surrogate decision maker is listed in patient medical record.: Yes Medication Reconciliation I have utilized all available resources to obtain, update and review the patients current medications (includes all prescriptions, OTC, herbals, cannabis, and nutritional supplements).: Yes
[2024-10-13 23:37] LABS: Glucose Point of Care 95 mg/dl (65-105)
[2024-10-14] VITALS (15 sets, daily range): BP systolic 101–128; BP diastolic 59–80; PULSE 82–111; RESP 16–22; TEMP 36.6–37.2; O2SAT 98–100
[2024-10-14] MEDS: PHENYTOIN SOD 250 MG/5 ML 130 MG IV PUSH (00:46)
[2024-10-14] MEDS: LORazepam INJ (*CRX) 2 MG/ML VIAL IV PUSH (03:44)
[2024-10-14 04:34] LABS: Hematocrit 27.7 % (37.0-47.0); Immature Platelet Fraction Pct 6.9 % (0.9-11.2); Mean Corpuscular HGB Conc 32.5 g/dl (32-36); Mean Corpuscular Hemoglobin 36.6 pg (26-34); Mean Corpuscular Volume 112.6 fl (80-100); Mean Platelet Volume 11.3 fl (7.4-10.4); Platelet Count Result 109 k/mm3 (150-375); Red Blood Count 2.46 M/mm3 (4.2-5.4); Red Cell Distribution Width 23.6 % (11.5-14.5); White Blood Count 5.8 K/mm3 (4.5-10.0)
[2024-10-14 04:58] LABS: Alanine Aminotransferase 76 U/L (6-35); Albumin Level 2.6 g/dL (3.5-5.1); Alkaline Phosphatase 283 U/L (38-126); Anion Gap 8 mmol/L (4-12); Aspartate Amino Transferase 287 U/L (14-36); Bilirubin,Total 15.6 mg/dL (0.2-1.3); Blood Urea Nitrogen 7 mg/dL (7-17); Calcium 8.5 mg/dL (8.4-10.2); Carbon Dioxide 24 mmol/L (22-30); Chloride 100 mmol/L (98-107); Estimated CRCL calculation 107 ml/min; Estimated Glomerular Filt Rate > 60; Glucose 73 mg/dL (65-110); Phosphorus 3.5 mg/dL (2.5-4.5); Sodium 132 mmol/L (137-145); Total Protein 6.2 g/dL (6.3-8.2)
[2024-10-14 05:00] LABS: Band Neutrophils Percent 10 % (0-6); Basophils Absolute Manual 0.05 K/mm3 (0.0-0.1); Basophils Percent Manual 1 % (0-1); Eosinophils Absolute Manual 0.11 K/mm3 (0.02-0.50); Eosinophils Percent Manual 2 % (0-4); Lymphocytes Absolute Manual 1.16 K/mm3 (1.1-4.5); Monocytes Absolute Manual 0.11 K/mm3 (0.1-0.90); Monocytes Percent Manual 2 % (3-9); Neutrophils Absolute Manual 4.35 K/mm3 (1.3-6.7); Neutrophils Percent Manual 65 % (46-73); Total Cells Counted 100
[2024-10-14 05:01] LABS: Anisocytosis 1+; Platelet Estimate Decreased (Adequate); Target Cells 1+
[2024-10-14 05:02] LABS: Macrocytosis 1+ (NORMAL); Schistocytes None Seen
[2024-10-14] MEDS: chlordiazePOXIDE (*CRX) 25 MG CAPSULE PO ×3 (05:41→23:50)
[2024-10-14 05:44] LABS: Hepatitis B Surface Antigen Negative (Negative)
[2024-10-14 05:49] LABS: HAV RESULT Negative (Negative); Hepatitis B Core IgM Result Negative (Negative)
[2024-10-14 06:01] LABS: Hepatitis C Virus Antibody Negative (Negative)
[2024-10-14 06:15] LABS: Glucose Point of Care 72 mg/dl (65-105)
--- NOTE | 2024-10-14 06:43 | WPDGICN ---
Assessment and Plan Assessment and plan (1) Acute alcoholic hepatitis: Code(s): K70.10 - Alcoholic hepatitis without ascites Status: Acute Assessment and Plan: This patient has advanced chronic liver disease that's been acutely decompensated due to ongoing alcohol consumption. She's currently being managed with alcohol withdrawal precautions. A diagnostic and therapeutic paracentesis is scheduled for today to definitively rule out spontaneous bacterial peritonitis a common complication in such cases. If SBP is excluded and considering her MELD score of 25, she's a strong candidate for treatment with short-term corticosteroids, specifically prednisone 40 mg daily for one month, followed by a quick taper. Furthermore, we plan to therapeutically drain 5-8 liters of ascitic fluid from her abdomen. To prevent post-paracentesis circulatory dysfunction, albumin replacement will be administered at a dose of 6-8 grams for every liter drained above 5 liters. Should the paracentesis fluid analysis reveal an infection (defined as >250?PMNs/mm3), will promptly start antibiotic therapy. This will be accompanied by albumin administration at a dose of 1.5 grams per kilogram today and 1 gram per kilogram on day 3. A significant concern is her lack of social support and history of no prior medical care, which places her at high risk for persistent alcohol abuse. Once her acute medical condition stabilizes, we will engage social work services to assist with her social needs and may initiate low-dose baclofen as a measure to mitigate alcohol cravings. (2) Alcoholic cirrhosis of liver with ascites: Code(s): K70.31 - Alcoholic cirrhosis of liver with ascites Status: Acute (3) Alcohol withdrawal: Qualifiers: Complication of substance-induced condition: uncomplicated Qualified Code(s): F10.930 - Alcohol use, unspecified with withdrawal, uncomplicated Code(s): F10.939 - Alcohol use, unspecified with withdrawal, unspecified Status: Acute GI Consult Note Consult date/time: 10/14/24 06:43 Reason for consult: Alcohol related hepatitis HPI: Ms. Latrice Presley, a 43-year-old female with a significant history of alcohol abuse, presented to the emergency room due to two weeks of jaundice, followed by one week of progressive abdominal distension. She began drinking at age 15 and has been consuming alcohol daily since age 24, reporting an intake of up to 6-7 beers and several shots of whiskey daily. Her last alcoholic beverage was consumed on the night of the . She also notes lower extremity edema that has been present for the past few months. While she has experienced prior episodes of alcohol withdrawal, she denies any history of alcohol withdrawal seizures or current confusion. Her laboratory data from today show: WBC 5.8, hemoglobin 9.0, platelet count 109, INR 1.3, sodium 132, creatinine 0.5, albumin 2.6, total bilirubin 15.6, AST 287, ALT 76. MELD 3.0 score =25 Review of Systems Review of Systems: All systems reviewed & are unremarkable except as noted in HPI and below [facility] Past Medical History Medical History (Updated 10/14/24 @ 02:40 by Karen Chandler DO) Continuous tobacco abuse History of alcohol abuse Surgical History Surgical History (Updated 10/14/24 @ 02:08 by Karen Chandler DO) No history of previous surgery Family History Family History (Updated 10/14/24 @ 02:29 by Karen Chandler DO) Mother Psychiatric illness History of bowel resection Father Unknown family medical history Grandparent Alcoholism Social History Social History (Updated 10/14/24 @ 02:14 by Karen Chandler DO) Social History: The patient has had history of heavy alcohol use since early teens. She has smoked up to a pack a cigarettes per day since she was 18 but has cut back to 0.5 packs per day. She has 1 adult daughter. Code status: Full code Surrogate decision maker: Marino Garay (significant other) Smoking packs per day: 0.5 Smoking cigarettes per day: 10.0 Years smoked: 25 Smoking pack-years: 12.50 Smoking status: Current every day smoker Tobacco type: cigarettes Second hand tobacco smoke exposure: Yes Alcohol intake: current Drinks per week: 28 Substance use: never Do You Feel Safe in your Home?: Yes Lack of Transportation: YES Lack of Food: Never True Current Housing: I Have Housing Concerned About Future Housing: No Difficulty Paying Gas/Electric Bills: No Difficulty Paying for Meds: No Currently Unemployed: No Education: Trade/Vocational Certificate Difficulty w/ Childcare or Family Care: No Additional living arrangements comments: She lives with her boyfriend of 9 years and her 21-year-old daughter. She has a medium-sized dog. 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 Spiritual care concerns: Yes Meds Home Medications and Allergies Home Medications ?Medication ?Instructions ?Recorded ?Confirmed ?Type multivitamin (Daily Multi-Vitamin 1 tablet PO DAILY 10/13/24 10/13/24 History tablet) Allergies Allergy/AdvReac Type Severity Reaction Status Date / Time codeine Allergy Unknown Nausea and Verified 10/13/24 16:23 Vomiting Vital Signs Vital Signs - 24 hr 10/13/24 15:22 10/13/24 16:45 10/13/24 18:00 Temperature 97.5 F L Pulse Rate 111 H 107 H 93 Pulse Rate [Monitor] Respiratory Rate 16 23 H 19 Blood Pressure 99/64 L 114/75 101/76 Pulse Oximetry 100 100 100 Oxygen Delivery Room Air 10/13/24 19:00 10/13/24 19:46 10/13/24 20:00 Temperature Pulse Rate 90 99 Pulse Rate [Monitor] 100 Respiratory Rate 20 22 H Blood Pressure 112/71 114/78 Pulse Oximetry 100 99 Oxygen Delivery 10/13/24 20:43 10/13/24 21:00 10/13/24 21:08 Temperature 98.4 F 99 F Pulse Rate 99 88 Pulse Rate [Monitor] Respiratory Rate 22 H 22 H Blood Pressure 114/78 129/69 Pulse Oximetry 99 99 Oxygen Delivery Room Air 10/13/24 22:00 10/13/24 23:37 10/14/24 00:00 Temperature 99 F Pulse Rate 104 H 111 H Pulse Rate [Monitor] 107 H Respiratory Rate 20 Blood Pressure 109/67 Pulse Oximetry 99 Oxygen Delivery 10/14/24 00:00 10/14/24 00:00 10/14/24 02:00 Temperature Pulse Rate 102 H 101 H Pulse Rate [Monitor] Respiratory Rate Blood Pressure Pulse Oximetry Oxygen Delivery Room Air 10/14/24 03:31 10/14/24 04:00 10/14/24 04:00 Temperature 99 F Pulse Rate 84 Pulse Rate [Monitor] 102 H Respiratory Rate 22 H Blood Pressure 102/59 L Pulse Oximetry 98 Oxygen Delivery Room Air 10/14/24 04:00 10/14/24 06:00 Temperature Pulse Rate 101 H 98 Pulse Rate [Monitor] Respiratory Rate Blood Pressure Pulse Oximetry Oxygen Delivery Exam Narrative: currently asleep after receiving a dose of benzodiazepines. Markedly jaundiced, with facial erythema. Abdomen grossly distended, nontender. Extremities: Pitting edema 2+ pedal and pretibial. Neurologically not evaluable due to sedation. Results Labs 10/14/24 03:52 10/14/24 03:52 Labs: Short CBC 10/13/24 10/14/24 Range/Units 16:06 03:52 WBC 7.9 5.8 (4.5-10.0) K/mm3 Hgb 10.5 L 9.0 L (12.0-15.0) g/dL Hct 31.7 L 27.7 L (37.0-47.0) % Plt Count 124 L 109 L (150-375) k/mm3 BMP 10/13/24 10/14/24 16:06 03:52 Sodium 133 L 132 L Potassium 4.1 4.0 Chloride 99 100 Carbon Dioxide 23 24 BUN 7 7 Creatinine 0.52 L 0.50 L Glucose 82 73 Calcium 9.1 8.5 Cardiac Enzymes 10/13/24 Range/Units 16:06 Troponin I < 0.012 (0.000-0.034) ng/mL Liver Function 10/13/24 10/14/24 Range/Units 16:06 03:52 Total Bilirubin 18.3 H 15.6 H (0.2-1.3) mg/dL AST 364 H 287 H (14-36) U/L ALT 91 H 76 H (6-35) U/L Alkaline Phosphatase 371 H 283 H (38-126) U/L Albumin 3.2 L 2.6 L (3.5-5.1) g/dL Urine 10/13/24 Range/Units 16:29 Urine Color Dark red H (Yellow) Urine Appearance Clear (Clear) Urine pH TNP Ur Specific Campbell TNP Urine Protein TNP Urine Glucose (UA) TNP
[2024-10-14 07:12] LABS: Folic Acid 13.3 ng/mL (2.76->20); Vitamin B12 > 1000.0 pg/mL (239-931)
[2024-10-14] MEDS: NICOTINE (*PBKC) 14 MG PATCH 1 PATCH TRANSDERM (09:48)
[2024-10-14] MEDS: SPIRONOLACTONE 25 MG TABLET PO (09:48)
[2024-10-14] MEDS: MULTIVITAMINS THERAPEUTIC TAB (*BKC) 1 TABLET PO (09:48)
[2024-10-14 11:58] LABS: Glucose Point of Care 73 mg/dl (65-105)
[2024-10-14 15:52] LABS: Color Peritoneal Fluid Yellow (Colorless); Source Peritoneal Fluid Peritoneal Fluid
[2024-10-14 15:58] LABS: Nucleated Cells Peritoneal Flu 55 /uL (0-500); RBC Peritoneal Fluid < 2000 /uL (0-10000)
[2024-10-14 16:10] LABS: Appearance Peritoneal Fluid Clear (Clear)
[2024-10-14 16:19] LABS: Eosinophils Peritoneal Fluid 0 %; Lymphocytes Peritoneal Fluid 8 %; Mesothelial Cells Peritoneal Fluid 4 %; Monocytes Peritoneal Fluid 13 %; Neutrophils Peritoneal Fluid 0 % (0-25)
[2024-10-14 16:20] LABS: Macrophages Peritoneal Fluid 75 %
--- NOTE | 2024-10-14 16:35 | P.PNIM_ITS ---
Progress Note: A&P Assessment and Plan (1) Acute alcoholic hepatitis: Code(s): K70.10 - Alcoholic hepatitis without ascites Status: Acute (2) Alcohol withdrawal: Qualifiers: Complication of substance-induced condition: uncomplicated Qualified Code(s): F10.930 - Alcohol use, unspecified with withdrawal, uncomplicated Code(s): F10.939 - Alcohol use, unspecified with withdrawal, unspecified Status: Acute (3) Alcoholic cirrhosis of liver with ascites: Code(s): K70.31 - Alcoholic cirrhosis of liver with ascites Status: Acute (4) Continuous tobacco abuse: Code(s): Z72.0 - Tobacco use Status: Acute Plan Alcoholic hepatitis Liver cirrhosis with ascites INR 1.3, Bili 15.6 with ascites Maddrey discrimination score 34.9 Awaiting ruling out SBP for Steroid commencement monitor AScites r/o SBP For paracentesis today alcohol abuse LAD was 3 days ago counseled about alcohol consumption CIWA protocol Multivitamin monitor anemia with macrocytosis likely alcohol related B12 adn folate normal monitor DVT prophylaxis on Sq Lovenox Subjective Date/time seen: 10/14/24 16:35 Interval history: Comfortable at bedside Review of Systems Review of Systems: 12 systems were reviewed with pertinent positives and negatives per HPI. Except as documented in the HPI, all other systems were reviewed and are negative. Exam Narrative: Weight 60.3 kg BMI 22.8 Const: Other: No acute distress, appears stated age HENMT: Other: Mucous membranes are tacky, no oral pharyngeal erythema, no petechiae Eyes: Other: Marked scleral icterus, positive conjunctival pallor, pupils are equal and reactive Neck: Other: No JVD, no lymphadenopathy Resp: Other: Clear to auscultation bilaterally, no increased work of breathing Cardio: Other: Sinus tachycardia, 2+ bilateral radial pedal pulses, no murmur GI: Other: Distended, tight, positive fluid wave, caput medusa Skin: Other: Marked jaundice, cap of induced across the abdomen, no petechiae, no bruising Neuro: Other: Alert oriented x4, speech is clear, no facial asymmetry, moves all extremities equally, asterixis, marked tremor when trying to do activities Extrem: Other: 1+ pitting edema bilateral lower extremi ty edema, no clubbing, no cyanosis, moves all extremities equally Psych: Other: Mildly anxious, otherwise pleasant and cooperative, good judgment and insight Objective Data Vital Signs Vital Signs: Vital Signs - 24 hr 10/13/24 16:45 10/13/24 18:00 10/13/24 19:00 Temperature Pulse Rate 107 H 93 90 Pulse Rate [Monitor] Respiratory Rate 23 H 19 20 Blood Pressure 114/75 101/76 112/71 Pulse Oximetry 100 100 100 Oxygen Delivery 10/13/24 19:46 10/13/24 20:00 10/13/24 20:43 Temperature 98.4 F Pulse Rate 99 99 Pulse Rate [Monitor] 100 Respiratory Rate 22 H 22 H Blood Pressure 114/78 114/78 Pulse Oximetry 99 99 Oxygen Delivery 10/13/24 21:00 10/13/24 21:08 10/13/24 22:00 Temperature 99 F Pulse Rate 88 104 H Pulse Rate [Monitor] Respiratory Rate 22 H Blood Pressure 129/69 Pulse Oximetry 99 Oxygen Delivery Room Air 10/13/24 23:37 10/14/24 00:00 10/14/24 00:00 Temperature 99 F Pulse Rate 111 H Pulse Rate [Monitor] 107 H Respiratory Rate 20 Blood Pressure 109/67 Pulse Oximetry 99 Oxygen Delivery Room Air 10/14/24 00:00 10/14/24 02:00 10/14/24 03:31 Temperature Pulse Rate 102 H 101 H Pulse Rate [Monitor] 102 H Respiratory Rate Blood Pressure Pulse Oximetry Oxygen Delivery 10/14/24 04:00 10/14/24 04:00 10/14/24 04:00 Temperature 99 F Pulse Rate 84 101 H Pulse Rate [Monitor] Respiratory Rate 22 H Blood Pressure 102/59 L Pulse Oximetry 98 Oxygen Delivery Room Air 10/14/24 06:00 10/14/24 08:00 10/14/24 08:00 Temperature 97.8 F Pulse Rate 98 92 Pulse Rate [Monitor] 102 H Respiratory Rate 18 Blood Pressure 128/80 Pulse Oximetry 100 Oxygen Delivery 10/14/24 08:00 10/14/24 08:00 10/14/24 10:00 Temperature Pulse Rate 92 101 H 93 Pulse Rate [Monitor] Respiratory Rate 18 Blood Pressure Pulse Oximetry 100 Oxygen Delivery Room Air 10/14/24 11:53 10/14/24 12:00 10/14/24 12:00 Temperature 98.3 F Pulse Rate 94 Pulse Rate [Monitor] 82 Respiratory Rate 18 Blood Pressure 114/73 Pulse Oximetry 99 Oxygen Delivery Room Air 10/14/24 12:00 10/14/24 14:00 10/14/24 16:31 Temperature 97.9 F Pulse Rate 82 91 84 Pulse Rate [Monitor] Respiratory Rate 16 Blood Pressure 116/66 Pulse Oximetry 100 Oxygen Delivery Intake/Output Intake/Output: Intake & Output 10/11/24 10/12/24 10/13/24 10/14/24 23:59 23:59 23:59 23:59 Intake Total 0 Output Total 2400 Balance -2400 Meds/Results Medications: Active Medications Generic Name Dose Route Start Last Admin Trade Name Freq PRN Reason Stop Dose Admin Chlordiazepoxide HCl 25 mg 10/14/24 06:00 10/14/24 16:26 Chlordiazepoxide (*Crx) 25 Mg Capsule PO Not Given Q6HR ANTHONY Lorazepam 2 mg 10/14/24 02:22 Lorazepam Inj (*Crx) 2 Mg/Ml Vial IV PUSH Q2H PRN CIWA > 15 Lorazepam 2 mg 10/14/24 02:22 10/14/24 03:44 Lorazepam Inj (*Crx) 2 Mg/Ml Vial IV PUSH 2 mg Q4H PRN Administration CIWA 8-15 Multivitamins Therapeutic 1 tablet 10/14/24 09:00 10/14/24 09:48 Multivitamins Therapeutic Tab (*Bkc) PO 1 tablet DAILY ANTHONY Administration Nicotine 1 patch 10/14/24 09:00 10/14/24 09:48 Nicotine (*Pbkc) 14 Mg Patch TRANSDERM 1 patch DAILY ANTHONY Administration Spironolactone 25 mg 10/14/24 09:00 10/14/24 09:48 Spironolactone 25 Mg Tablet PO 25 mg QAM ANTHONY Administration Radiology Results: ITS Impressions Chest X-Ray 10/13/24 16:26 IMPRESSION: No focal infiltrate or effusion. Abdomen/Pelvis CT 10/13/24 17:17 IMPRESSION: 1. Combination of cirrhosis and diffuse hepatic steatosis. 2. Mild splenomegaly which along with gastroesophageal varices are consistent with secondary venous hypertension. 3. Moderate amount of ascites. 4. T-shaped IUD in expected position within the anteverted uterus. Paracentesis Ultrasound 10/14/24 15:44 IMPRESSION: 1. Successful ultrasound-guided paracentesis yielding 1700 mL of dark ramu- colored fluid. Labs Labs: Laboratory Results - last 24 hr 10/13/24 10/13/24 10/13/24 16:06 16:29 16:34 WBC 7.9 RBC 2.85 L Hgb 10.5 L Hct 31.7 L MCV 111.2 H MCH 36.8 H MCHC 33.1 RDW 22.2 H Plt Count 124 L MPV 11.5 H Immature Gran % (Auto) Not Reportable Neut % (Auto) Not Reportable Lymph % (Auto) Not Reportable Placer % (Auto) Not Reportable Eos % (Auto) Not Reportable Baso % (Auto) Not Reportable Lymph # (Auto) Not Reportable Placer # (Auto) Not Reportable Eos # (Auto) Not Reportable Baso # (Auto) Not Reportable Abs Immat Gran (auto) Not Reportable Absolute Neuts (auto) Not Reportable Absolute Nucleated RBC Not Reportable Total Counted 100 Neutrophils % (Manual) 74 H Band Neutrophils % 5 Lymphocytes % (Manual) 12.0 L Monocytes % (Manual) 7 Eosinophils % (Manual) 2 Basophils % (Manual) Nucleated RBC % Not Reportable Abs Neuts (Manual) 6.24 Abs Lymphs (Manual) 0.94 L Abs Monocytes (Manual) 0.55 Absolute Eos (Manual) 0.15 Abs Basophils (Manual) Platelet Estimate Adequate % Immature Plt Fraction Anisocytosis 3+ Macrocytosis 2+ Target Cells Schistocytes None seen PT 16.2 H INR 1.3 APTT 39.4 H Sodium 133 L Potassium 4.1 Chloride 99 Carbon Dioxide 23 Anion Gap 11 BUN 7 Creatinine 0.52 L Estim Creat Clear Calc 94 Estimated GFR > 60 Glucose 82 POC Capillary Glucose Lactic Acid 1.7 Calcium 9.1 Phosphorus 3.1 Magnesium 2.1 Total Bilirubin 18.3 H AST 364 H ALT 91 H Alkaline Phosphatase 371 H Troponin I < 0.012 NT-Pro-B Natriuret Pep 128 H Total Protein 7.3 Albumin 3.2 L Lipase 110 Vitamin B12 Folate Urine Color Dark red H Urine Appearance Clear Urine pH TNP Ur Specific [place] TNP Urine Protein TNP Urine Glucose (UA) TNP Urine Ketones TNP Ur Blood (Man) TNP Urine Nitrate TNP Urine Bilirubin TNP Urine Urobilinogen TNP Leukocyte Esterase Rfl TNP Urine RBC 0-2 Urine WBC 0-5 Ur Squamous Epith Cells Few Urine Bacteria 4+ H POC Urine HCG, Qual Negative Peritoneal Source Peritoneal Color Peritoneal Appearance Peritoneal RBC Periton Nuc Cells Periton Neutrophils Periton Lymphocytes Peritoneal Monocytes Peritoneal Eosinophils Periton Mesothelial Periton Macrophages Ethyl Alcohol < 10 Hepatitis A IgM Ab Hep Bs Antigen Hep B Core IgM Ab Hepatitis C Ab Screen 10/13/24 10/13/24 10/14/24 21:12 23:33 03:52 WBC 5.8 RBC 2.46 L Hgb 9.0 L Hct 27.7 L MCV 112.6 H MCH 36.6 H MCHC 32.5 RDW 23.6 H Plt Count 109 L MPV 11.3 H Immature Gran % (Auto) Not Reportable Neut % (Auto) Not Reportable Lymph % (Auto) Not Reportable Placer % (Auto) Not Reportable Eos % (Auto) Not Reportable Baso % (Auto) Not Reportable Lymph # (Auto) Not Reportable Placer # (Auto) Not Reportable Eos # (Auto) Not Reportable Baso # (Auto) Not Reportable Abs Immat Gran (auto) Not Reportable Absolute Neuts (auto) Not Reportable Absolute Nucleated RBC Not Reportable Total Counted 100 Neutrophils % (Manual) 65 Band Neutrophils % 10 H Lymphocytes % (Manual) 20.0 Monocytes % (Manual) 2 L Eosinophils % (Manual) 2 Basophils % (Manual) 1 Nucleated RBC % Not Reportable Abs Neuts (Manual) 4.35 Abs Lymphs (Manual) 1.16 Abs Monocytes (Manual) 0.11 Absolute Eos (Manual) 0.11 Abs Basophils (Manual) 0.05 Platelet Estimate Decreased % Immature Plt Fraction 6.9 Anisocytosis 1+ Macrocytosis 1+ Target Cells 1+ Schistocytes None seen PT INR APTT Sodium 132 L Potassium 4.0 Chloride 100 Carbon Dioxide 24 Anion Gap 8 BUN 7 Creatinine 0.50 L Estim Creat Clear Calc 107 Estimated GFR > 60 Glucose 73 POC Capillary Glucose 105 95 Lactic Acid Calcium 8.5 Phosphorus 3.5 Magnesium 2.0 Total Bilirubin 15.6 H AST 287 H ALT 76 H Alkaline Phosphatase 283 H Troponin I NT-Pro-B Natriuret Pep Total Protein 6.2 L Albumin 2.6 L Lipase Vitamin B12 > 1000.0 H Folate 13.3 Urine Color Urine Appearance Urine pH Ur Specific [place] Urine Protein Urine Glucose (UA) Urine Ketones Ur Blood (Man) Urine Nitrate Urine Bilirubin Urine Urobilinogen Leukocyte Esterase Rfl Urine RBC Urine WBC Ur Squamous Epith Cells Urine Bacteria POC Urine HCG, Qual Peritoneal Source Peritoneal Color Peritoneal Appearance Peritoneal RBC Periton Nuc Cells Periton Neutrophils Periton Lymphocytes Peritoneal Monocytes Peritoneal Eosinophils Periton Mesothelial Periton Macrophages Ethyl Alcohol Hepatitis A IgM Ab Negative Hep Bs Antigen Negative Hep B Core IgM Ab Negative Hepatitis C Ab Screen Negative 10/14/24 10/14/24 10/14/24 06:13 11:55 15:16 WBC RBC Hgb Hct MCV MCH MCHC RDW Plt Count MPV Immature Gran % (Auto) Neut % (Auto) Lymph % (Auto) Placer % (Auto) Eos % (Auto) Baso % (Auto) Lymph # (Auto) Placer # (Auto) Eos # (Auto) Baso # (Auto) Abs Immat Gran (auto) Absolute Neuts (auto) Absolute Nucleated RBC Total Counted Neutrophils % (Manual) Band Neutrophils % Lymphocytes % (Manual) Monocytes % (Manual) Eosinophils % (Manual) Basophils % (Manual) Nucleated RBC % Abs Neuts (Manual) Abs Lymphs (Manual) Abs Monocytes (Manual) Absolute Eos (Manual) Abs Basophils (Manual) Platelet Estimate % Immature Plt Fraction Anisocytosis Macrocytosis Target Cells Schistocytes PT INR APTT Sodium Potassium Chloride Carbon Dioxide Anion Gap BUN Creatinine Estim Creat Clear Calc Estimated GFR Glucose POC Capillary Glucose 72 73 Lactic Acid Calcium Phosphorus Magnesium Total Bilirubin AST ALT Alkaline Phosphatase Troponin I NT-Pro-B Natriuret Pep Total Protein Albumin Lipase Vitamin B12 Folate Urine Color Urine Appearance Urine pH Ur Specific [place] Urine Protein Urine Glucose (UA) Urine Ketones Ur Blood (Man) Urine Nitrate Urine Bilirubin Urine Urobilinogen Leukocyte Esterase Rfl Urine RBC Urine WBC Ur Squamous Epith Cells Urine Bacteria POC Urine HCG, Qual Peritoneal Source Peritoneal fluid Peritoneal Color Yellow Peritoneal Appearance Clear Peritoneal RBC < 2000 Periton Nuc Cells 55 Periton Neutrophils 0 Periton Lymphocytes 8 Peritoneal Monocytes 13 Peritoneal Eosinophils 0 Periton Mesothelial 4 Periton Macrophages 75 Ethyl Alcohol Hepatitis A IgM Ab Hep Bs Antigen Hep B Core IgM Ab Hepatitis C Ab Screen Quality VTE Prophylaxis VTE prophylaxis: mechanical ordered (SCDs)
[2024-10-14 17:46] LABS: Glucose Point of Care 66 mg/dl (65-105)
[2024-10-14 18:12] LABS: Glucose Point of Care 93 mg/dl (65-105)
--- NOTE | 2024-10-14 18:43 | WPDGIPROGNO ---
Progress Note: A&P Assessment and Plan (1) Alcoholic cirrhosis of liver with ascites: Code(s): K70.31 - Alcoholic cirrhosis of liver with ascites Status: Acute Assessment and Plan: Ascitic fluid analysis from paracentesis revealed no evidence of infection (specifically, no increase in PMNs). With infection ruled out and a high MELD 3.0 score of 25, the patient is considered a strong candidate for corticosteroid therapy for her alcohol related hepatitis. Will initiate Prednisone 40 mg qam starting tomorrow. We will closely monitor her response using the Lille score on days 4 and 7 to determine if the 30-day course with a quick taper is warranted. Given her young age and advanced liver disease, she is an excellent candidate for liver transplantation. We will proceed with a referral to the [facility] Transplant Team for evaluation as soon as she is outside the window for acute alcohol withdrawal syndrome. In addition, to support her long-term sobriety, we plan to initiate baclofen at discharge to help manage potential alcohol cravings. (2) Alcohol withdrawal: Qualifiers: Complication of substance-induced condition: uncomplicated Qualified Code(s): F10.930 - Alcohol use, unspecified with withdrawal, uncomplicated Code(s): F10.939 - Alcohol use, unspecified with withdrawal, unspecified Status: Acute Subjective Date/time seen: 10/14/24 18:43 Objective Data Vital Signs Vital Signs: Vital Signs - 24 hr 10/13/24 19:00 10/13/24 19:46 10/13/24 20:00 Temperature Pulse Rate 90 99 Pulse Rate [Monitor] 100 Respiratory Rate 20 22 H Blood Pressure 112/71 114/78 Pulse Oximetry 100 99 Oxygen Delivery 10/13/24 20:43 10/13/24 21:00 10/13/24 21:08 Temperature 98.4 F 99 F Pulse Rate 99 88 Pulse Rate [Monitor] Respiratory Rate 22 H 22 H Blood Pressure 114/78 129/69 Pulse Oximetry 99 99 Oxygen Delivery Room Air 10/13/24 22:00 10/13/24 23:37 10/14/24 00:00 Temperature 99 F Pulse Rate 104 H 111 H Pulse Rate [Monitor] 107 H Respiratory Rate 20 Blood Pressure 109/67 Pulse Oximetry 99 Oxygen Delivery 10/14/24 00:00 10/14/24 00:00 10/14/24 02:00 Temperature Pulse Rate 102 H 101 H Pulse Rate [Monitor] Respiratory Rate Blood Pressure Pulse Oximetry Oxygen Delivery Room Air 10/14/24 03:31 10/14/24 04:00 10/14/24 04:00 Temperature 99 F Pulse Rate 84 Pulse Rate [Monitor] 102 H Respiratory Rate 22 H Blood Pressure 102/59 L Pulse Oximetry 98 Oxygen Delivery Room Air 10/14/24 04:00 10/14/24 06:00 10/14/24 08:00 Temperature 97.8 F Pulse Rate 101 H 98 92 Pulse Rate [Monitor] Respiratory Rate 18 Blood Pressure 128/80 Pulse Oximetry 100 Oxygen Delivery 10/14/24 08:00 10/14/24 08:00 10/14/24 08:00 Temperature Pulse Rate 92 101 H Pulse Rate [Monitor] 102 H Respiratory Rate 18 Blood Pressure Pulse Oximetry 100 Oxygen Delivery Room Air 10/14/24 10:00 10/14/24 11:53 10/14/24 12:00 Temperature 98.3 F Pulse Rate 93 94 Pulse Rate [Monitor] 82 Respiratory Rate 18 Blood Pressure 114/73 Pulse Oximetry 99 Oxygen Delivery 10/14/24 12:00 10/14/24 12:00 10/14/24 14:00 Temperature Pulse Rate 82 91 Pulse Rate [Monitor] Respiratory Rate Blood Pressure Pulse Oximetry Oxygen Delivery Room Air 10/14/24 16:00 10/14/24 16:00 10/14/24 16:00 Temperature Pulse Rate 84 84 Pulse Rate [Monitor] 84 Respiratory Rate 16 Blood Pressure 116/66 Pulse Oximetry 100 Oxygen Delivery Room Air 10/14/24 16:31 10/14/24 18:00 Temperature 97.9 F Pulse Rate 84 106 H Pulse Rate [Monitor] Respiratory Rate 16 Blood Pressure 116/66 Pulse Oximetry 100 Oxygen Delivery Intake/Output Intake/Output: Intake & Output 10/11/24 10/12/24 10/13/24 10/14/24 23:59 23:59 23:59 23:59 Intake Total 440 Output Total 2400 Balance -1960 Meds/Results Medications: Active Medications Generic Name Dose Route Start Last Admin Trade Name Freq PRN Reason Stop Dose Admin Chlordiazepoxide HCl 25 mg 10/14/24 06:00 10/14/24 17:23 Chlordiazepoxide (*Crx) 25 Mg Capsule PO 25 mg Q6HR ANTHONY Administration Enoxaparin Sodium 40 mg 10/15/24 09:00 Enoxaparin 40 Mg/0.4 Ml Syringe SUB-Q DAILY ANTHONY Lorazepam 2 mg 10/14/24 02:22 Lorazepam Inj (*Crx) 2 Mg/Ml Vial IV PUSH Q2H PRN CIWA > 15 Lorazepam 2 mg 10/14/24 02:22 10/14/24 03:44 Lorazepam Inj (*Crx) 2 Mg/Ml Vial IV PUSH 2 mg Q4H PRN Administration CIWA 8-15 Multivitamins Therapeutic 1 tablet 10/14/24 09:00 10/14/24 09:48 Multivitamins Therapeutic Tab (*Bkc) PO 1 tablet DAILY ANTHONY Administration Nicotine 1 patch 10/14/24 09:00 10/14/24 09:48 Nicotine (*Pbkc) 14 Mg Patch TRANSDERM 1 patch DAILY ANTHONY Administration Spironolactone 25 mg 10/14/24 09:00 10/14/24 09:48 Spironolactone 25 Mg Tablet PO 25 mg QAM ANTHONY Administration Radiology Results: ITS Impressions Chest X-Ray 10/13/24 16:26 IMPRESSION: No focal infiltrate or effusion. Abdomen/Pelvis CT 10/13/24 17:17 IMPRESSION: 1. Combination of cirrhosis and diffuse hepatic steatosis. 2. Mild splenomegaly which along with gastroesophageal varices are consistent with secondary venous hypertension. 3. Moderate amount of ascites. 4. T-shaped IUD in expected position within the anteverted uterus. Paracentesis Ultrasound 10/14/24 15:44 IMPRESSION: 1. Successful ultrasound-guided paracentesis yielding 1700 mL of dark ramu-colored fluid. Labs Labs: Laboratory Results - last 24 hr 10/13/24 10/13/24 10/14/24 21:12 23:33 03:52 WBC 5.8 RBC 2.46 L Hgb 9.0 L Hct 27.7 L MCV 112.6 H MCH 36.6 H MCHC 32.5 RDW 23.6 H Plt Count 109 L MPV 11.3 H Immature Gran % (Auto) Not Reportable Neut % (Auto) Not Reportable Lymph % (Auto) Not Reportable [place] % (Auto) Not Reportable Eos % (Auto) Not Reportable Baso % (Auto) Not Reportable Lymph # (Auto) Not Reportable [place] # (Auto) Not Reportable Eos # (Auto) Not Reportable Baso # (Auto) Not Reportable Abs Immat Gran (auto) Not Reportable Absolute Neuts (auto) Not Reportable Absolute Nucleated RBC Not Reportable Total Counted 100 Neutrophils % (Manual) 65 Band Neutrophils % 10 H Lymphocytes % (Manual) 20.0 Monocytes % (Manual) 2 L Eosinophils % (Manual) 2 Basophils % (Manual) 1 Nucleated RBC % Not Reportable Abs Neuts (Manual) 4.35 Abs Lymphs (Manual) 1.16 Abs Monocytes (Manual) 0.11 Absolute Eos (Manual) 0.11 Abs Basophils (Manual) 0.05 Platelet Estimate Decreased % Immature Plt Fraction 6.9 Anisocytosis 1+ Macrocytosis 1+ Target Cells 1+ Schistocytes None seen Sodium 132 L Potassium 4.0 Chloride 100 Carbon Dioxide 24 Anion Gap 8 BUN 7 Creatinine 0.50 L Estim Creat Clear Calc 107 Estimated GFR > 60 Glucose 73 POC Capillary Glucose 105 95 Calcium 8.5 Phosphorus 3.5 Magnesium 2.0 Total Bilirubin 15.6 H AST 287 H ALT 76 H Alkaline Phosphatase 283 H Total Protein 6.2 L Albumin 2.6 L Vitamin B12 > 1000.0 H Folate 13.3 Peritoneal Source Peritoneal Color Peritoneal Appearance Peritoneal RBC Periton Nuc Cells Periton Neutrophils Periton Lymphocytes Peritoneal Monocytes Peritoneal Eosinophils Periton Mesothelial Periton Macrophages Hepatitis A IgM Ab Negative Hep Bs Antigen Negative Hep B Core IgM Ab Negative Hepatitis C Ab Screen Negative 10/14/24 10/14/24 10/14/24 06:13 11:55 15:16 WBC RBC Hgb Hct MCV MCH MCHC RDW Plt Count MPV Immature Gran % (Auto) Neut % (Auto) Lymph % (Auto) [place] % (Auto) Eos % (Auto) Baso % (Auto) Lymph # (Auto) [place] # (Auto) Eos # (Auto) Baso # (Auto) Abs Immat Gran (auto) Absolute Neuts (auto) Absolute Nucleated RBC Total Counted Neutrophils % (Manual) Band Neutrophils % Lymphocytes % (Manual) Monocytes % (Manual) Eosinophils % (Manual) Basophils % (Manual) Nucleated RBC % Abs Neuts (Manual) Abs Lymphs (Manual) Abs Monocytes (Manual) Absolute Eos (Manual) Abs Basophils (Manual) Platelet Estimate % Immature Plt Fraction Anisocytosis Macrocytosis Target Cells Schistocytes Sodium Potassium Chloride Carbon Dioxide Anion Gap BUN Creatinine Estim Creat Clear Calc Estimated GFR Glucose POC Capillary Glucose 72 73 Calcium Phosphorus Magnesium Total Bilirubin AST ALT Alkaline Phosphatase Total Protein Albumin Vitamin B12 Folate Peritoneal Source Peritoneal fluid Peritoneal Color Yellow Peritoneal Appearance Clear Peritoneal RBC < 2000 Periton Nuc Cells 55 Periton Neutrophils 0 Periton Lymphocytes 8 Peritoneal Monocytes 13 Peritoneal Eosinophils 0 Periton Mesothelial 4 Periton Macrophages 75 Hepatitis A IgM Ab Hep Bs Antigen Hep B Core IgM Ab Hepatitis C Ab Screen 10/14/24 10/14/24 17:44 18:10 WBC RBC Hgb Hct MCV MCH MCHC RDW Plt Count MPV Immature Gran % (Auto) Neut % (Auto) Lymph % (Auto) [place] % (Auto) Eos % (Auto) Baso % (Auto) Lymph # (Auto) [place] # (Auto) Eos # (Auto) Baso # (Auto) Abs Immat Gran (auto) Absolute Neuts (auto) Absolute Nucleated RBC Total Counted Neutrophils % (Manual) Band Neutrophils % Lymphocytes % (Manual) Monocytes % (Manual) Eosinophils % (Manual) Basophils % (Manual) Nucleated RBC % Abs Neuts (Manual) Abs Lymphs (Manual) Abs Monocytes (Manual) Absolute Eos (Manual) Abs Basophils (Manual) Platelet Estimate % Immature Plt Fraction Anisocytosis Macrocytosis Target Cells Schistocytes Sodium Potassium Chloride Carbon Dioxide Anion Gap BUN Creatinine Estim Creat Clear Calc Estimated GFR Glucose POC Capillary Glucose 66 93 Calcium Phosphorus Magnesium Total Bilirubin AST ALT Alkaline Phosphatase Total Protein Albumin Vitamin B12 Folate Peritoneal Source Peritoneal Color Peritoneal Appearance Peritoneal RBC Periton Nuc Cells Periton Neutrophils Periton Lymphocytes Peritoneal Monocytes Peritoneal Eosinophils Periton Mesothelial Periton Macrophages Hepatitis A IgM Ab Hep Bs Antigen Hep B Core IgM Ab Hepatitis C Ab Screen
[2024-10-15] VITALS (11 sets, daily range): BP systolic 92–119; BP diastolic 53–67; PULSE 80–112; RESP 16–18; TEMP 36.5–36.9; O2SAT 99–100
[2024-10-15 00:03] LABS: Glucose Point of Care 106 mg/dl (65-105)
[2024-10-15] MEDS: MORPHINE SULFATE (*CRX) 2 MG/ML INJ IV PUSH ×2 (04:31→09:50)
[2024-10-15 04:33] LABS: Basophils Absolute Auto 0.1 K/mm3 (0.0-0.1); Basophils Percent Auto 0.8 % (0.2-1.2); Eosinophils Absolute Auto 0.1 K/mm3 (0-0.3); Eosinophils Percent Auto 1.2 % (0-4.4); Hematocrit 30.1 % (37.0-47.0); Hemoglobin 9.6 g/dL (12.0-15.0); Immature Granulocyte Absolute 0.04 K/mm3 (0.00-0.031); Immature Granulocyte Percent A 0.6 % (0-0.5); Lymphocytes Absolute Auto 1.75 K/mm3 (0.9-3.2); Lymphocytes Percent Auto 26.4 % (18.3-44.2); Mean Corpuscular HGB Conc 31.9 g/dl (32-36); Mean Corpuscular Hemoglobin 36.5 pg (26-34); Mean Corpuscular Volume 114.4 fl (80-100); Mean Platelet Volume 10.7 fl (7.4-10.4); Monocytes Absolute Auto 0.6 K/mm3 (0.1-0.6); Monocytes Percent Auto 9.3 % (2.6-8.5); Neutrophils Absolute Auto 4.1 K/mm3 (1.3-6.7); Neutrophils Percent Auto 61.7 % (45.5-73.1); Platelet Count Result 116 k/mm3 (150-375); Red Blood Count 2.63 M/mm3 (4.2-5.4); White Blood Count 6.6 K/mm3 (4.5-10.0)
[2024-10-15 04:43] LABS: INR 1.4; Prothrombin Time 16.6 Seconds (11.1-14.7)
[2024-10-15 04:47] LABS: Lactic Acid Reflex 1.3 mmol/L (0.7-2.0)
[2024-10-15 04:51] LABS: Alanine Aminotransferase 74 U/L (6-35); Albumin Level 2.7 g/dL (3.5-5.1); Alkaline Phosphatase 301 U/L (38-126); Anion Gap 6 mmol/L (4-12); Aspartate Amino Transferase 253 U/L (14-36); Bilirubin,Total 15.6 mg/dL (0.2-1.3); Blood Urea Nitrogen 7 mg/dL (7-17); Calcium 8.3 mg/dL (8.4-10.2); Carbon Dioxide 26 mmol/L (22-30); Chloride 98 mmol/L (98-107); Estimated CRCL calculation 95 ml/min; Estimated Glomerular Filt Rate > 60; Glucose 77 mg/dL (65-110); Potassium 3.8 mmol/L (3.4-5.0); Sodium 130 mmol/L (137-145); Total Protein 6.4 g/dL (6.3-8.2)
[2024-10-15 05:11] LABS: Anisocytosis 1+; Band Neutrophils Percent 0 % (0-6); Hypochromasia 1+; Platelet Estimate Decreased (Adequate); Schistocytes None Seen; Target Cells 1+
[2024-10-15] MEDS: chlordiazePOXIDE (*CRX) 25 MG CAPSULE PO ×2 (05:48→17:05)
[2024-10-15 05:51] LABS: Glucose Point of Care 83 mg/dl (65-105)
--- NOTE | 2024-10-15 07:06 | P.PNGI_ITS ---
Progress Note: A&P Assessment and Plan (1) Acute alcoholic hepatitis: Code(s): K70.10 - Alcoholic hepatitis without ascites Status: Acute Assessment and Plan: Having excluded SBP, pneumonia, and UTI, the patient is deemed an appropriate candidate for corticosteroid therapy given her high MELD 3.0 score of 25. Prednisone 40 mg daily will be initiated today. A Lille score will be calculated on day 4 to guide the decision regarding continuation of therapy for 30 days. The patient will be closely monitored for withdrawal symptoms, and arrangements for transplant center evaluation will be made prior to discharge. (2) Alcoholic cirrhosis of liver with ascites: Code(s): K70.31 - Alcoholic cirrhosis of liver with ascites Status: Acute Subjective Date/time seen: 10/15/24 07:06 Interval history: the patient had a good night, no seizures, no tremors. She feels overall Objective Data Vital Signs Vital Signs: Vital Signs - 24 hr 10/14/24 08:00 10/14/24 08:00 10/14/24 08:00 Temperature 97.8 F Pulse Rate 92 92 Pulse Rate [Monitor] 102 H Respiratory Rate 18 18 Blood Pressure 128/80 Pulse Oximetry 100 100 Oxygen Delivery Room Air 10/14/24 08:00 10/14/24 10:00 10/14/24 11:53 Temperature 98.3 F Pulse Rate 101 H 93 94 Pulse Rate [Monitor] Respiratory Rate 18 Blood Pressure 114/73 Pulse Oximetry 99 Oxygen Delivery 10/14/24 12:00 10/14/24 12:00 10/14/24 12:00 Temperature Pulse Rate 82 Pulse Rate [Monitor] 82 Respiratory Rate Blood Pressure Pulse Oximetry Oxygen Delivery Room Air 10/14/24 14:00 10/14/24 16:00 10/14/24 16:00 Temperature Pulse Rate 91 84 Pulse Rate [Monitor] 84 Respiratory Rate 16 Blood Pressure 116/66 Pulse Oximetry 100 Oxygen Delivery Room Air 10/14/24 16:00 10/14/24 16:31 10/14/24 18:00 Temperature 97.9 F Pulse Rate 84 84 106 H Pulse Rate [Monitor] Respiratory Rate 16 Blood Pressure 116/66 Pulse Oximetry 100 Oxygen Delivery 10/14/24 20:00 10/14/24 20:00 10/14/24 20:00 Temperature 98.1 F Pulse Rate 100 Pulse Rate [Monitor] 109 H Respiratory Rate 16 Blood Pressure 101/62 Pulse Oximetry 99 Oxygen Delivery Room Air 10/14/24 20:00 10/14/24 22:00 10/15/24 00:00 Temperature Pulse Rate 111 H 104 H Pulse Rate [Monitor] 95 Respiratory Rate Blood Pressure Pulse Oximetry Oxygen Delivery 10/15/24 00:00 10/15/24 00:00 10/15/24 00:00 Temperature 98.5 F Pulse Rate 106 H 94 Pulse Rate [Monitor] Respiratory Rate 16 Blood Pressure 92/53 L Pulse Oximetry 99 Oxygen Delivery Room Air 10/15/24 02:00 10/15/24 04:00 10/15/24 04:00 Temperature Pulse Rate 95 Pulse Rate [Monitor] 112 H Respiratory Rate Blood Pressure Pulse Oximetry Oxygen Delivery Room Air 10/15/24 04:00 10/15/24 04:00 10/15/24 06:00 Temperature 97.9 F Pulse Rate 102 H 103 H 99 Pulse Rate [Monitor] Respiratory Rate 16 Blood Pressure 119/64 Pulse Oximetry 99 Oxygen Delivery Intake/Output Intake/Output: Intake & Output 10/12/24 10/13/24 10/14/24 10/15/24 23:59 23:59 23:59 23:59 Intake Total 440 350 Output Total 2400 400 Balance -1960 -50 Meds/Results Medications: Active Medications Generic Name Dose Route Start Last Admin Trade Name Freq PRN Reason Stop Dose Admin Chlordiazepoxide HCl 25 mg 10/14/24 06:00 10/15/24 05:48 Chlordiazepoxide (*Crx) 25 Mg Capsule PO 25 mg Q6HR ANTHONY Administration Enoxaparin Sodium 40 mg 10/15/24 09:00 Enoxaparin 40 Mg/0.4 Ml Syringe SUB-Q DAILY ANTHONY Furosemide 40 mg 10/15/24 09:00 Furosemide 40 Mg Tablet PO DAILY ANTHONY Lorazepam 2 mg 10/14/24 02:22 Lorazepam Inj (*Crx) 2 Mg/Ml Vial IV PUSH Q2H PRN CIWA > 15 Lorazepam 2 mg 10/14/24 02:22 10/14/24 03:44 Lorazepam Inj (*Crx) 2 Mg/Ml Vial IV PUSH 2 mg Q4H PRN Administration CIWA 8-15 Morphine Sulfate 2 mg 10/15/24 04:02 10/15/24 04:31 Morphine Sulfate (*Crx) 2 Mg/Ml Inj IV PUSH 2 mg Q4H PRN Administration Pain Rated 7-10 Multivitamins Therapeutic 1 tablet 10/14/24 09:00 10/14/24 09:48 Multivitamins Therapeutic Tab (*Bkc) PO 1 tablet DAILY ANTHONY Administration Nicotine 1 patch 10/14/24 09:00 10/14/24 09:48 Nicotine (*Pbkc) 14 Mg Patch TRANSDERM 1 patch DAILY ANTHONY Administration Prednisone 40 mg 10/15/24 08:00 Prednisone 20 Mg Tablet PO DAILY@0800 ANTHONY Spironolactone 25 mg 10/14/24 09:00 10/14/24 09:48 Spironolactone 25 Mg Tablet PO 25 mg QAM ANTHONY Administration Radiology Results: ITS Impressions Chest X-Ray 10/13/24 16:26 IMPRESSION: No focal infiltrate or effusion. Abdomen/Pelvis CT 10/13/24 17:17 IMPRESSION: 1. Combination of cirrhosis and diffuse hepatic steatosis. 2. Mild splenomegaly which along with gastroesophageal varices are consistent with secondary venous hypertension. 3. Moderate amount of ascites. 4. T-shaped IUD in expected position within the anteverted uterus. Paracentesis Ultrasound 10/14/24 15:44 IMPRESSION: 1. Successful ultrasound-guided paracentesis yielding 1700 mL of dark ramu- colored fluid. Labs Labs: Laboratory Results - last 24 hr 10/14/24 10/14/24 10/14/24 03:52 11:55 15:16 WBC RBC Hgb Hct MCV MCH MCHC RDW Plt Count MPV Immature Gran % (Auto) Neut % (Auto) Lymph % (Auto) [place] % (Auto) Eos % (Auto) Baso % (Auto) Lymph # (Auto) [place] # (Auto) Eos # (Auto) Baso # (Auto) Abs Immat Gran (auto) Absolute Neuts (auto) Absolute Nucleated RBC Band Neutrophils % Nucleated RBC % Platelet Estimate Hypochromasia Anisocytosis Target Cells Schistocytes PT INR Sodium Potassium Chloride Carbon Dioxide Anion Gap BUN Creatinine Estim Creat Clear Calc Estimated GFR Glucose POC Capillary Glucose 73 Lactic Acid Calcium Magnesium Total Bilirubin AST ALT Alkaline Phosphatase Total Protein Albumin Vitamin B12 > 1000.0 H Folate 13.3 Peritoneal Source Peritoneal fluid Peritoneal Color Yellow Peritoneal Appearance Clear Peritoneal RBC < 2000 Periton Nuc Cells 55 Periton Neutrophils 0 Periton Lymphocytes 8 Peritoneal Monocytes 13 Peritoneal Eosinophils 0 Periton Mesothelial 4 Periton Macrophages 75 10/14/24 10/14/2410/14/25 17:44 18:10 23:50 WBC RBC Hgb Hct MCV MCH MCHC RDW Plt Count MPV Immature Gran % (Auto) Neut % (Auto) Lymph % (Auto) [place] % (Auto) Eos % (Auto) Baso % (Auto) Lymph # (Auto) [place] # (Auto) Eos # (Auto) Baso # (Auto) Abs Immat Gran (auto) Absolute Neuts (auto) Absolute Nucleated RBC Band Neutrophils % Nucleated RBC % Platelet Estimate Hypochromasia Anisocytosis Target Cells Schistocytes PT INR Sodium Potassium Chloride Carbon Dioxide Anion Gap BUN Creatinine Estim Creat Clear Calc Estimated GFR Glucose POC Capillary Glucose 66 93 106 H Lactic Acid Calcium Magnesium Total Bilirubin AST ALT Alkaline Phosphatase Total Protein Albumin Vitamin B12 Folate Peritoneal Source Peritoneal Color Peritoneal Appearance Peritoneal RBC Periton Nuc Cells Periton Neutrophils Periton Lymphocytes Peritoneal Monocytes Peritoneal Eosinophils Periton Mesothelial Periton Macrophages 10/15/24 10/15/24 04:20 05:47 WBC 6.6 RBC 2.63 L Hgb 9.6 L Hct 30.1 L MCV 114.4 H MCH 36.5 H MCHC 31.9 L RDW 23.0 H Plt Count 116 L MPV 10.7 H Immature Gran % (Auto) 0.6 H Neut % (Auto) 61.7 Lymph % (Auto) 26.4 [place] % (Auto) 9.3 H Eos % (Auto) 1.2 Baso % (Auto) 0.8 Lymph # (Auto) 1.75 [place] # (Auto) 0.6 Eos # (Auto) 0.1 Baso # (Auto) 0.1 Abs Immat Gran (auto) 0.04 H Absolute Neuts (auto) 4.1 Absolute Nucleated RBC 0.000 Band Neutrophils % 0 Nucleated RBC % 0.0 Platelet Estimate Decreased Hypochromasia 1+ Anisocytosis 1+ Target Cells 1+ Schistocytes None seen PT 16.6 H INR 1.4 Sodium 130 L Potassium 3.8 Chloride 98 Carbon Dioxide 26 Anion Gap 6 BUN 7 Creatinine 0.57 L Estim Creat Clear Calc 95 Estimated GFR > 60 Glucose 77 POC Capillary Glucose 83 Lactic Acid 1.3 Calcium 8.3 L Magnesium 2.0 Total Bilirubin 15.6 H AST 253 H ALT 74 H Alkaline Phosphatase 301 H Total Protein 6.4 Albumin 2.7 L Vitamin B12 Folate Peritoneal Source Peritoneal Color Peritoneal Appearance Peritoneal RBC Periton Nuc Cells Periton Neutrophils Periton Lymphocytes Peritoneal Monocytes Peritoneal Eosinophils Periton Mesothelial Periton Macrophages
[2024-10-15] MEDS: predniSONE 20 MG TABLET 40 MG PO (08:09)
[2024-10-15] MEDS: ENOXAPARIN 40 MG/0.4 ML SYRINGE SUB-Q (08:09)
[2024-10-15] MEDS: MULTIVITAMINS THERAPEUTIC TAB (*BKC) 1 TABLET PO (08:09)
[2024-10-15] MEDS: FUROSEMIDE 40 MG TABLET PO (08:10)
[2024-10-15] MEDS: NICOTINE (*PBKC) 14 MG PATCH 1 PATCH TRANSDERM (08:10)
[2024-10-15] MEDS: SPIRONOLACTONE 25 MG TABLET PO (08:10)
[2024-10-15 11:48] LABS: Glucose Point of Care 139 mg/dl (65-105)
--- NOTE | 2024-10-15 16:27 | PM.IMPN ---
Progress Note: A&P Assessment and Plan (1) Acute alcoholic hepatitis: Code(s): K70.10 - Alcoholic hepatitis without ascites Status: Acute (2) Alcohol withdrawal: Qualifiers: Complication of substance-induced condition: uncomplicated Qualified Code(s): F10.930 - Alcohol use, unspecified with withdrawal, uncomplicated Code(s): F10.939 - Alcohol use, unspecified with withdrawal, unspecified Status: Acute (3) Alcoholic cirrhosis of liver with ascites: Code(s): K70.31 - Alcoholic cirrhosis of liver with ascites Status: Acute (4) Continuous tobacco abuse: Code(s): Z72.0 - Tobacco use Status: Acute Plan Alcoholic hepatitis Liver cirrhosis with ascites INR 1.3, Bili 15.6 with ascites Maddrey discrimination score 34.9 On Prednisone , dilcia score on Sunday GI working on transplant referral monitor Ascites r/o SBP s/p Paracentesis, ruled out SBP alcohol abuse LAD was 4 days ago counseled about alcohol consumption CIWA protocol Multivitamin monitor Anemia with macrocytosis likely alcohol related B12 adn folate normal monitor DVT prophylaxis on Sq Lovenox Subjective Date/time seen: 10/15/24 16:27 Interval history: Comfortable at bedside Review of Systems Review of Systems: 12 systems were reviewed with pertinent positives and negatives per HPI. Except as documented in the HPI, all other systems were reviewed and are negative. Exam Narrative: Weight 60.3 kg BMI 22.8 Const: Other: No acute distress, appears stated age HENMT: Other: Mucous membranes are tacky, no oral pharyngeal erythema, no petechiae Eyes: Other: Marked scleral icterus, positive conjunctival pallor, pupils are equal and reactive Neck: Other: No JVD, no lymphadenopathy Resp: Other: Clear to auscultation bilaterally, no increased work of breathing Cardio: Other: Sinus tachycardia, 2+ bilateral radial pedal pulses, no murmur GI: Other: Distended, tight, positive fluid wave, caput medusa Skin: Other: Marked jaundice, cap of induced across the abdomen, no petechiae, no bruising Neuro: Other: Alert oriented x4, speech is clear, no facial asymmetry, moves all extremities equally, asterixis, marked tremor when trying to do activities Extrem: Other: 1+ pitting edema bilateral lower extremity edema, no clubbing, no cyanosis, moves all extremities equally Psych: Other: Mildly anxious, otherwise pleasant and cooperative, good judgment and insight Objective Data Vital Signs Vital Signs: Vital Signs - 24 hr 10/14/24 16:31 10/14/24 18:00 10/14/24 20:00 Temperature 97.9 F 98.1 F Pulse Rate 84 106 H 100 Pulse Rate [Monitor] Respiratory Rate 16 16 Blood Pressure 116/66 101/62 Pulse Oximetry 100 99 Oxygen Delivery 10/14/24 20:00 10/14/24 20:00 10/14/24 20:00 Temperature Pulse Rate 111 H Pulse Rate [Monitor] 109 H Respiratory Rate Blood Pressure Pulse Oximetry Oxygen Delivery Room Air 10/14/24 22:00 10/15/24 00:00 10/15/24 00:00 Temperature 98.5 F Pulse Rate 104 H 106 H Pulse Rate [Monitor] 95 Respiratory Rate 16 Blood Pressure 92/53 L Pulse Oximetry 99 Oxygen Delivery 10/15/24 00:00 10/15/24 00:00 10/15/24 02:00 Temperature Pulse Rate 94 95 Pulse Rate [Monitor] Respiratory Rate Blood Pressure Pulse Oximetry Oxygen Delivery Room Air 10/15/24 04:00 10/15/24 04:00 10/15/24 04:00 Temperature 97.9 F Pulse Rate 102 H Pulse Rate [Monitor] 112 H Respiratory Rate 16 Blood Pressure 119/64 Pulse Oximetry 99 Oxygen Delivery Room Air 10/15/24 04:00 10/15/24 06:00 10/15/24 07:45 Temperature 98.2 F Pulse Rate 103 H 99 98 Pulse Rate [Monitor] Respiratory Rate 16 Blood Pressure 114/67 Pulse Oximetry 100 Oxygen Delivery 10/15/24 08:00 10/15/24 08:00 10/15/24 08:00 Temperature Pulse Rate 101 H 101 H Pulse Rate [Monitor] 101 H Respiratory Rate 16 Blood Pressure 114/67 Pulse Oximetry 100 Oxygen Delivery Room Air 10/15/24 11:52 10/15/24 16:00 10/15/24 16:07 Temperature 98.2 F Pulse Rate 92 Pulse Rate [Monitor] 94 94 Respiratory Rate 18 Blood Pressure 114/67 114/67 101/60 Pulse Oximetry 99 Oxygen Delivery Intake/Output Intake/Output: Intake & Output 10/12/24 10/13/24 10/14/24 10/15/24 23:59 23:59 23:59 23:59 Intake Total 440 710 Output Total 2400 800 Meds/Results Medications: Active Medications Generic Name Dose Route Start Last Admin Trade Name Freq PRN Reason Stop Dose Admin Chlordiazepoxide HCl 25 mg 10/14/24 06:00 10/15/24 05:48 Chlordiazepoxide (*Crx) 25 Mg Capsule PO 25 mg Q6HR ANTHONY Administration Enoxaparin Sodium 40 mg 10/15/24 09:00 10/15/24 08:09 Enoxaparin 40 Mg/0.4 Ml Syringe SUB-Q 40 mg DAILY ANTHONY Administration Furosemide 40 mg 10/15/24 09:00 10/15/24 08:10 Furosemide 40 Mg Tablet PO 40 mg DAILY ANTHONY Administration Lorazepam 2 mg 10/14/24 02:22 Lorazepam Inj (*Crx) 2 Mg/Ml Vial IV PUSH Q2H PRN CIWA > 15 Lorazepam 2 mg 10/14/24 02:22 10/14/24 03:44 Lorazepam Inj (*Crx) 2 Mg/Ml Vial IV PUSH 2 mg Q4H PRN Administration CIWA 8-15 Morphine Sulfate 2 mg 10/15/24 04:02 10/15/24 09:50 Morphine Sulfate (*Crx) 2 Mg/Ml Inj IV PUSH 2 mg Q4H PRN Administration Pain Rated 7-10 Multivitamins Therapeutic 1 tablet 10/14/24 09:00 10/15/24 08:09 Multivitamins Therapeutic Tab (*Bkc) PO 1 tablet DAILY ANTHONY Administration Nicotine 1 patch 10/14/24 09:00 10/15/24 08:10 Nicotine (*Pbkc) 14 Mg Patch TRANSDERM 1 patch DAILY ANTHONY Administration Prednisone 40 mg 10/15/24 08:00 10/15/24 08:09 Prednisone 20 Mg Tablet PO 40 mg DAILY@0800 ANTHONY Administration Spironolactone 25 mg 10/14/24 09:00 10/15/24 08:10 Spironolactone 25 Mg Tablet PO 25 mg QAM ANTHONY Administration Radiology Results: ITS Impressions Chest X-Ray 10/13/24 16:26 IMPRESSION: No focal infiltrate or effusion. Abdomen/Pelvis CT 10/13/24 17:17 IMPRESSION: 1. Combination of cirrhosis and diffuse hepatic steatosis. 2. Mild splenomegaly which along with gastroesophageal varices are consistent with secondary venous hypertension. 3. Moderate amount of ascites. 4. T-shaped IUD in expected position within the anteverted uterus. Paracentesis Ultrasound 10/14/24 15:44 IMPRESSION: 1. Successful ultrasound-guided paracentesis yielding 1700 mL of dark ramu-colored fluid. Labs Labs: Laboratory Results - last 24 hr 10/14/24 10/14/24 10/14/24 17:44 18:10 23:50 WBC RBC Hgb Hct MCV MCH MCHC RDW Plt Count MPV Immature Gran % (Auto) Neut % (Auto) Lymph % (Auto) [place] % (Auto) Eos % (Auto) Baso % (Auto) Lymph # (Auto) [place] # (Auto) Eos # (Auto) Baso # (Auto) Abs Immat Gran (auto) Absolute Neuts (auto) Absolute Nucleated RBC Band Neutrophils % Nucleated RBC % Platelet Estimate Hypochromasia Anisocytosis Target Cells Schistocytes PT INR Sodium Potassium Chloride Carbon Dioxide Anion Gap BUN Creatinine Estim Creat Clear Calc Estimated GFR Glucose POC Capillary Glucose 66 93 106 H Lactic Acid Calcium Magnesium Total Bilirubin AST ALT Alkaline Phosphatase Total Protein Albumin 10/15/24 10/15/24 10/15/24 04:20 05:47 11:04 WBC 6.6 RBC 2.63 L Hgb 9.6 L Hct 30.1 L MCV 114.4 H MCH 36.5 H MCHC 31.9 L RDW 23.0 H Plt Count 116 L MPV 10.7 H Immature Gran % (Auto) 0.6 H Neut % (Auto) 61.7 Lymph % (Auto) 26.4 [place] % (Auto) 9.3 H Eos % (Auto) 1.2 Baso % (Auto) 0.8 Lymph # (Auto) 1.75 [place] # (Auto) 0.6 Eos # (Auto) 0.1 Baso # (Auto) 0.1 Abs Immat Gran (auto) 0.04 H Absolute Neuts (auto) 4.1 Absolute Nucleated RBC 0.000 Band Neutrophils % 0 Nucleated RBC % 0.0 Platelet Estimate Decreased Hypochromasia 1+ Anisocytosis 1+ Target Cells 1+ Schistocytes None seen PT 16.6 H INR 1.4 Sodium 130 L Potassium 3.8 Chloride 98 Carbon Dioxide 26 Anion Gap 6 BUN 7 Creatinine 0.57 L Estim Creat Clear Calc 95 Estimated GFR > 60 Glucose 77 POC Capillary Glucose 83 139 H Lactic Acid 1.3 Calcium 8.3 L Magnesium 2.0 Total Bilirubin 15.6 H AST 253 H ALT 74 H Alkaline Phosphatase 301 H Total Protein 6.4 Albumin 2.7 L Quality VTE Prophylaxis VTE prophylaxis: mechanical ordered (SCDs)
[2024-10-15 17:46] LABS: Glucose Point of Care 163 mg/dl (65-105)
--- NOTE | 2024-10-15 18:56 | PC.NURSE ---
Dr Waldrop called and made aware that patient family member (Babak Mendez, spouse) changed code status of patient from full code to DNR. Carlotta Martinez RN witnessed conversation at this time. Dr Waldrop verbalized understanding and gave a telephone order to put patient in as a DNR at this time.
[2024-10-15 20:02] LABS: Glucose Point of Care 144 mg/dl (65-105)
[2024-10-16] MEDS: chlordiazePOXIDE (*CRX) 25 MG CAPSULE PO ×3 (00:03→16:51)
[2024-10-16 00:08] LABS: Glucose Point of Care 133 mg/dl (65-105)
[2024-10-16 04:29] LABS: Basophils Percent Auto 0.3 % (0.2-1.2); Eosinophils Percent Auto 0.2 % (0-4.4); Hematocrit 27.6 % (37.0-47.0); Hemoglobin 8.9 g/dL (12.0-15.0); Immature Granulocyte Absolute 0.05 K/mm3 (0.00-0.031); Immature Granulocyte Percent A 0.8 % (0-0.5); Immature Platelet Fraction Pct 7.1 % (0.9-11.2); Lymphocytes Absolute Auto 1.05 K/mm3 (0.9-3.2); Lymphocytes Percent Auto 15.8 % (18.3-44.2); Mean Corpuscular HGB Conc 32.2 g/dl (32-36); Mean Corpuscular Hemoglobin 36.9 pg (26-34); Mean Corpuscular Volume 114.5 fl (80-100); Mean Platelet Volume 10.8 fl (7.4-10.4); Monocytes Absolute Auto 0.6 K/mm3 (0.1-0.6); Monocytes Percent Auto 8.9 % (2.6-8.5); Neutrophils Absolute Auto 4.9 K/mm3 (1.3-6.7); Platelet Count Result 124 k/mm3 (150-375); Red Blood Count 2.41 M/mm3 (4.2-5.4); Red Cell Distribution Width 22.3 % (11.5-14.5); White Blood Count 6.7 K/mm3 (4.5-10.0)
[2024-10-16 04:41] LABS: Alanine Aminotransferase 65 U/L (6-35); Albumin Level 2.4 g/dL (3.5-5.1); Alkaline Phosphatase 242 U/L (38-126); Anion Gap 4 mmol/L (4-12); Aspartate Amino Transferase 190 U/L (14-36); Bilirubin,Total 12.9 mg/dL (0.2-1.3); Blood Urea Nitrogen 7 mg/dL (7-17); Carbon Dioxide 27 mmol/L (22-30); Chloride 101 mmol/L (98-107); Estimated CRCL calculation 98 ml/min; Estimated Glomerular Filt Rate > 60; Glucose 129 mg/dL (65-110); Magnesium 2.1 mg/dL (1.6-2.3); Potassium 3.7 mmol/L (3.4-5.0); Sodium 132 mmol/L (137-145); Total Protein 5.8 g/dL (6.3-8.2)
[2024-10-16 05:06] LABS: Platelet Estimate Decreased (Adequate)
[2024-10-16 05:07] LABS: Hypochromasia 1+; Schistocytes None Seen; Target Cells 1+
--- NOTE | 2024-10-16 07:16 | WPDGIPROGNO ---
Progress Note: A&P Assessment and Plan (1) Acute alcoholic hepatitis: Code(s): K70.10 - Alcoholic hepatitis without ascites Status: Acute Assessment and Plan: Significant progress has been made in managing the patient's withdrawal, evidenced by the absence of hallucinations or seizures. Mild anxiety and tremor are still noted. Her bilirubin has shown a spontaneous decline from 18.3 on admission to 12.9 today, allowing for the discontinuation of steroids. We plan to continue close monitoring until she is fully recovered from withdrawal, with arrangements for follow-up in our clinic upon discharge. She may be a suitable candidate for liver transplantation in the future (2) Alcoholic cirrhosis of liver with ascites: Code(s): K70.31 - Alcoholic cirrhosis of liver with ascites Status: Acute (3) Alcohol withdrawal: Qualifiers: Complication of substance-induced condition: uncomplicated Qualified Code(s): F10.930 - Alcohol use, unspecified with withdrawal, uncomplicated Code(s): F10.939 - Alcohol use, unspecified with withdrawal, unspecified Status: Acute Subjective Date/time seen: 10/16/24 07:16 Objective Data Vital Signs Vital Signs: Vital Signs - 24 hr 10/15/24 07:45 10/15/24 08:00 10/15/24 08:00 Temperature 98.2 F Pulse Rate 98 101 H Pulse Rate [Bilateral Radial Palpation] Pulse Rate [Monitor] 101 H Respiratory Rate 16 16 Blood Pressure 114/67 114/67 Pulse Oximetry 100 100 Oxygen Delivery Room Air 10/15/24 08:00 10/15/24 11:52 10/15/24 15:48 Temperature Pulse Rate 101 H Pulse Rate [Bilateral Radial Palpation] Pulse Rate [Monitor] 94 Respiratory Rate Blood Pressure 114/67 Pulse Oximetry Oxygen Delivery Room Air 10/15/24 16:00 10/15/24 16:07 10/15/24 20:00 Temperature 98.2 F 97.7 F Pulse Rate 92 85 Pulse Rate [Bilateral Radial Palpation] Pulse Rate [Monitor] 94 Respiratory Rate 18 16 Blood Pressure 114/67 101/60 103/62 Pulse Oximetry 99 99 Oxygen Delivery 10/15/24 20:00 10/15/24 20:00 10/15/24 23:53 Temperature 97.8 F Pulse Rate 80 Pulse Rate [Bilateral Radial Palpation] 85 Pulse Rate [Monitor] Respiratory Rate 18 16 Blood Pressure 101/63 Pulse Oximetry 100 99 Oxygen Delivery Room Air Intake/Output Intake/Output: Intake & Output 10/13/24 10/14/24 10/15/24 10/16/24 23:59 23:59 23:59 23:59 Intake Total 440 1150 500 Output Total 2400 800 Balance -1960 350 500 Meds/Results Medications: Active Medications Generic Name Dose Route Start Last Admin Trade Name Freq PRN Reason Stop Dose Admin Chlordiazepoxide HCl 25 mg 10/14/24 06:00 10/16/24 05:30 Chlordiazepoxide (*Crx) 25 Mg Capsule PO 25 mg Q6HR ANTHONY Administration Enoxaparin Sodium 40 mg 10/15/24 09:00 10/15/24 08:09 Enoxaparin 40 Mg/0.4 Ml Syringe SUB-Q 40 mg DAILY ANTHONY Administration Furosemide 40 mg 10/15/24 09:00 10/15/24 08:10 Furosemide 40 Mg Tablet PO 40 mg DAILY ANTHONY Administration Lorazepam 2 mg 10/14/24 02:22 Lorazepam Inj (*Crx) 2 Mg/Ml Vial IV PUSH Q2H PRN CIWA > 15 Lorazepam 2 mg 10/14/24 02:22 10/14/24 03:44 Lorazepam Inj (*Crx) 2 Mg/Ml Vial IV PUSH 2 mg Q4H PRN Administration CIWA 8-15 Morphine Sulfate 2 mg 10/15/24 04:02 10/15/24 09:50 Morphine Sulfate (*Crx) 2 Mg/Ml Inj IV PUSH 2 mg Q4H PRN Administration Pain Rated 7-10 Multivitamins Therapeutic 1 tablet 10/14/24 09:00 10/15/24 08:09 Multivitamins Therapeutic Tab (*Bkc) PO 1 tablet DAILY ANTHONY Administration Nicotine 1 patch 10/14/24 09:00 10/15/24 08:10 Nicotine (*Pbkc) 14 Mg Patch TRANSDERM 1 patch DAILY ANTHONY Administration Prednisone 40 mg 10/15/24 08:00 10/15/24 08:09 Prednisone 20 Mg Tablet PO 40 mg DAILY@0800 ANTHONY Administration Spironolactone 25 mg 10/14/24 09:00 10/15/24 08:10 Spironolactone 25 Mg Tablet PO 25 mg QAM ANTHONY Administration Radiology Results: ITS Impressions Chest X-Ray 10/13/24 16:26 IMPRESSION: No focal infiltrate or effusion. Abdomen/Pelvis CT 10/13/24 17:17 IMPRESSION: 1. Combination of cirrhosis and diffuse hepatic steatosis. 2. Mild splenomegaly which along with gastroesophageal varices are consistent with secondary venous hypertension. 3. Moderate amount of ascites. 4. T-shaped IUD in expected position within the anteverted uterus. Paracentesis Ultrasound 10/14/24 15:44 IMPRESSION: 1. Successful ultrasound-guided paracentesis yielding 1700 mL of dark ramu-colored fluid. Labs Labs: Laboratory Results - last 24 hr 10/15/24 10/15/24 10/15/24 11:04 17:40 19:43 WBC RBC Hgb Hct MCV MCH MCHC RDW Plt Count MPV Immature Gran % (Auto) Neut % (Auto) Lymph % (Auto) [place] % (Auto) Eos % (Auto) Baso % (Auto) Lymph # (Auto) [place] # (Auto) Eos # (Auto) Baso # (Auto) Abs Immat Gran (auto) Absolute Neuts (auto) Absolute Nucleated RBC Band Neutrophils % Nucleated RBC % Platelet Estimate % Immature Plt Fraction Hypochromasia Target Cells Schistocytes Sodium Potassium Chloride Carbon Dioxide Anion Gap BUN Creatinine Estim Creat Clear Calc Estimated GFR Glucose POC Capillary Glucose 139 H 163 H 144 H Calcium Magnesium Total Bilirubin AST ALT Alkaline Phosphatase Total Protein Albumin 10/16/24 10/16/24 00:04 04:08 WBC 6.7 RBC 2.41 L Hgb 8.9 L Hct 27.6 L MCV 114.5 H MCH 36.9 H MCHC 32.2 RDW 22.3 H Plt Count 124 L MPV 10.8 H Immature Gran % (Auto) 0.8 H Neut % (Auto) 74.0 H Lymph % (Auto) 15.8 L [place] % (Auto) 8.9 H Eos % (Auto) 0.2 Baso % (Auto) 0.3 Lymph # (Auto) 1.05 [place] # (Auto) 0.6 Eos # (Auto) 0.0 Baso # (Auto) 0.0 Abs Immat Gran (auto) 0.05 H Absolute Neuts (auto) 4.9 Absolute Nucleated RBC 0.000 Band Neutrophils % Not Reportable Nucleated RBC % 0.0 Platelet Estimate Decreased % Immature Plt Fraction 7.1 Hypochromasia 1+ Target Cells 1+ Schistocytes None seen Sodium 132 L Potassium 3.7 Chloride 101 Carbon Dioxide 27 Anion Gap 4 BUN 7 Creatinine 0.55 L Estim Creat Clear Calc 98 Estimated GFR > 60 Glucose 129 H POC Capillary Glucose 133 H Calcium 8.0 L Magnesium 2.1 Total Bilirubin 12.9 H AST 190 H ALT 65 H Alkaline Phosphatase 242 H Total Protein 5.8 L Albumin 2.4 L
[2024-10-16 08:00] VITALS: BP 95/61; PULSE 86; PULSE 97; RESP 18; TEMP 36.5; O2SAT 98
[2024-10-16] MEDS: ALBUMIN HUMAN 25% 25 GM/100 ML 100 ML IVPB (08:32)
[2024-10-16] MEDS: ENOXAPARIN 40 MG/0.4 ML SYRINGE SUB-Q (08:33)
[2024-10-16] MEDS: FUROSEMIDE 40 MG TABLET PO (08:33)
[2024-10-16] MEDS: MULTIVITAMINS THERAPEUTIC TAB (*BKC) 1 TABLET PO (08:33)
[2024-10-16] MEDS: NICOTINE (*PBKC) 14 MG PATCH 1 PATCH TRANSDERM (08:33)
[2024-10-16] MEDS: SPIRONOLACTONE 25 MG TABLET PO (08:33)
[2024-10-16 12:20] LABS: Glucose Point of Care 93 mg/dl (65-105)
[2024-10-16 16:00] VITALS: BP 112/65; PULSE 101; RESP 20; TEMP 36.9; O2SAT 97
[2024-10-16] MEDS: MORPHINE SULFATE (*CRX) 2 MG/ML INJ IV PUSH (16:50)
--- NOTE | 2024-10-16 16:50 | P.PNIM_ITS ---
Progress Note: A&P Assessment and Plan (1) Acute alcoholic hepatitis: Code(s): K70.10 - Alcoholic hepatitis without ascites Status: Acute (2) Alcohol withdrawal: Qualifiers: Complication of substance-induced condition: uncomplicated Qualified Code(s): F10.930 - Alcohol use, unspecified with withdrawal, uncomplicated Code(s): F10.939 - Alcohol use, unspecified with withdrawal, unspecified Status: Acute (3) Alcoholic cirrhosis of liver with ascites: Code(s): K70.31 - Alcoholic cirrhosis of liver with ascites Status: Acute (4) Continuous tobacco abuse: Code(s): Z72.0 - Tobacco use Status: Acute Plan Alcoholic hepatitis Liver cirrhosis with ascites INR 1.3, Bili 15.6 with ascites Maddrey discrimination score 34.9 Bili today 12.9 Prednisone discontinued per GI Gi noted patient will follow up with transplant clinic at [facility] outpatient monitor Ascites r/o SBP s/p Paracentesis, ruled out SBP alcohol abuse LAD was 5 days ago counseled about alcohol consumption CIWA protocol Multivitamin monitor Anemia with macrocytosis likely alcohol related B12 adn folate normal monitor DVT prophylaxis on Sq Lovenox Subjective Date/time seen: 10/16/24 16:50 Interval history: Comfortable at bedside Review of Systems Review of Systems: 12 systems were reviewed with pertinent positives and negatives per HPI. Except as documented in the HPI, all other systems were reviewed and are negative. Exam Narrative: Weight 60.3 kg BMI 22.8 Const: Other: No acute distress, appears stated age HENMT: Other: Mucous membranes are tacky, no oral pharyngeal erythema, no petechiae Eyes: Other: Marked scleral icterus, positive conjunctival pallor, pupils are equal and reactive Neck: Other: No JVD, no lymphadenopathy Resp: Other: Clear to auscultation bilaterally, no increased work of breathing Cardio: Other: Sinus tachycardia, 2+ bilateral radial pedal pulses, no murmur GI: Other: Distended, tight, positive fluid wave, caput medusa Skin: Other: Marked jaundice, cap of induced across the abdomen, no petechiae, no bruising Neuro: Other: Alert oriented x4, speech is clear, no facial asymmetry, moves all extremities equally, asterixis, marked tremor when trying to do activities Extrem: Other: 1+ pitting edema bilateral lower extremi ty edema, no clubbing, no cyanosis, moves all extremities equally Psych: Other: Mildly anxious, otherwise pleasant and cooperative, good judgment and insight Objective Data Vital Signs Vital Signs: Vital Signs - 24 hr 10/15/24 20:00 10/15/24 20:00 10/15/24 20:00 Temperature 97.7 F Pulse Rate 85 Pulse Rate [Bilateral Radial Palpation] 85 Respiratory Rate 16 18 Blood Pressure 103/62 Pulse Oximetry 99 100 Oxygen Delivery Room Air 10/15/24 23:53 10/16/24 08:00 10/16/24 08:00 Temperature 97.8 F 97.7 F Pulse Rate 80 97 Pulse Rate [Bilateral Radial Palpation] 86 Respiratory Rate 16 18 Blood Pressure 101/63 95/61 L 95/61 L Pulse Oximetry 99 98 Oxygen Delivery 10/16/24 08:00 10/16/24 10:38 Temperature Pulse Rate 97 Pulse Rate [Bilateral Radial Palpation] Respiratory Rate 18 Blood Pressure Pulse Oximetry 98 Oxygen Delivery Room Air Room Air Intake/Output Intake/Output: Intake & Output 10/13/24 10/14/24 10/15/24 10/16/24 23:59 23:59 23:59 23:59 Intake Total 440 1150 620 Output Total 2400 800 Balance -1960 350 620 Meds/Results Medications: Active Medications Generic Name Dose Route Start Last Admin Trade Name Freq PRN Reason Stop Dose Admin Chlordiazepoxide HCl 25 mg 10/14/24 06:00 10/16/24 16:36 Chlordiazepoxide (*Crx) 25 Mg Capsule PO Not Given Q6HR ANTHONY Enoxaparin Sodium 40 mg 10/15/24 09:00 10/16/24 08:33 Enoxaparin 40 Mg/0.4 Ml Syringe SUB-Q 40 mg DAILY ANTHONY Administration Furosemide 40 mg 10/15/24 09:00 10/16/24 08:33 Furosemide 40 Mg Tablet PO 40 mg DAILY ANTHONY Administration Lorazepam 2 mg 10/14/24 02:22 Lorazepam Inj (*Crx) 2 Mg/Ml Vial IV PUSH Q2H PRN CIWA > 15 Lorazepam 2 mg 10/14/24 02:22 10/14/24 03:44 Lorazepam Inj (*Crx) 2 Mg/Ml Vial IV PUSH 2 mg Q4H PRN Administration CIWA 8-15 Morphine Sulfate 2 mg 10/15/24 04:02 10/15/24 09:50 Morphine Sulfate (*Crx) 2 Mg/Ml Inj IV PUSH 2 mg Q4H PRN Administration Pain Rated 7-10 Multivitamins Therapeutic 1 tablet 10/14/24 09:00 10/16/24 08:33 Multivitamins Therapeutic Tab (*Bkc) PO 1 tablet DAILY ATNHONY Administration Nicotine 1 patch 10/14/24 09:00 10/16/24 08:33 Nicotine (*Pbkc) 14 Mg Patch TRANSDERM 1 patch DAILY ANTHONY Administration Spironolactone 25 mg 10/14/24 09:00 10/16/24 08:33 Spironolactone 25 Mg Tablet PO 25 mg QAM ANTHONY Administration Radiology Results: ITS Impressions Chest X-Ray 10/13/24 16:26 IMPRESSION: No focal infiltrate or effusion. Abdomen/Pelvis CT 10/13/24 17:17 IMPRESSION: 1. Combination of cirrhosis and diffuse hepatic steatosis. 2. Mild splenomegaly which along with gastroesophageal varices are consistent with secondary venous hypertension. 3. Moderate amount of ascites. 4. T-shaped IUD in expected position within the anteverted uterus. Paracentesis Ultrasound 10/14/24 15:44 IMPRESSION: 1. Successful ultrasound-guided paracentesis yielding 1700 mL of dark ramu- colored fluid. Labs Labs: Laboratory Results - last 24 hr 10/15/24 10/15/24 10/16/24 17:40 19:43 00:04 WBC RBC Hgb Hct MCV MCH MCHC RDW Plt Count MPV Immature Gran % (Auto) Neut % (Auto) Lymph % (Auto) [place] % (Auto) Eos % (Auto) Baso % (Auto) Lymph # (Auto) [place] # (Auto) Eos # (Auto) Baso # (Auto) Abs Immat Gran (auto) Absolute Neuts (auto) Absolute Nucleated RBC Band Neutrophils % Nucleated RBC % Platelet Estimate % Immature Plt Fraction Hypochromasia Target Cells Schistocytes Sodium Potassium Chloride Carbon Dioxide Anion Gap BUN Creatinine Estim Creat Clear Calc Estimated GFR Glucose POC Capillary Glucose 163 H 144 H 133 H Calcium Magnesium Total Bilirubin AST ALT Alkaline Phosphatase Total Protein Albumin 10/16/24 10/16/24 04:08 11:22 WBC 6.7 RBC 2.41 L Hgb 8.9 L Hct 27.6 L MCV 114.5 H MCH 36.9 H MCHC 32.2 RDW 22.3 H Plt Count 124 L MPV 10.8 H Immature Gran % (Auto) 0.8 H Neut % (Auto) 74.0 H Lymph % (Auto) 15.8 L [place] % (Auto) 8.9 H Eos % (Auto) 0.2 Baso % (Auto) 0.3 Lymph # (Auto) 1.05 [place] # (Auto) 0.6 Eos # (Auto) 0.0 Baso # (Auto) 0.0 Abs Immat Gran (auto) 0.05 H Absolute Neuts (auto) 4.9 Absolute Nucleated RBC 0.000 Band Neutrophils % Not Reportable Nucleated RBC % 0.0 Platelet Estimate Decreased % Immature Plt Fraction 7.1 Hypochromasia 1+ Target Cells 1+ Schistocytes None seen Sodium 132 L Potassium 3.7 Chloride 101 Carbon Dioxide 27 Anion Gap 4 BUN 7 Creatinine 0.55 L Estim Creat Clear Calc 98 Estimated GFR > 60 Glucose 129 H POC Capillary Glucose 93 Calcium 8.0 L Magnesium 2.1 Total Bilirubin 12.9 H AST 190 H ALT 65 H Alkaline Phosphatase 242 H Total Protein 5.8 L Albumin 2.4 L Quality VTE Prophylaxis VTE prophylaxis: mechanical ordered (SCDs)
[2024-10-16 18:08] LABS: Glucose Point of Care 111 mg/dl (65-105)
[2024-10-16 20:00] VITALS: BP 100/60; PULSE 96; RESP 16; TEMP 36.8; O2SAT 100
--- NOTE | 2024-10-16 22:58 | PC.NURSE ---
[id number] Report given to NICHOLAS Lam
[2024-10-16 23:53] VITALS: PULSE 96
[2024-10-16 23:57] VITALS: BP 109/65; PULSE 96; RESP 16; TEMP 36.7; O2SAT 100
[2024-10-17] MEDS: MORPHINE SULFATE (*CRX) 2 MG/ML INJ IV PUSH ×2 (00:07→08:03)
[2024-10-17] MEDS: chlordiazePOXIDE (*CRX) 25 MG CAPSULE PO ×2 (00:08→06:25)
[2024-10-17 01:25] LABS: Glucose Point of Care 123 mg/dl (65-105)
[2024-10-17 04:00] VITALS: BP 91/56; PULSE 89
--- NOTE | 2024-10-17 05:13 | PC.NURSE ---
made Estela aware of lower BP at 0400, stated she most likely will need librium to be lowered, have the dayshift drs review, no changes at this time. Patient is asymptomatic
[2024-10-17 06:00] LABS: Glucose Point of Care 68 mg/dl (65-105)
--- NOTE | 2024-10-17 07:24 | P.PNGI_ITS ---
Progress Note: A&P Assessment and Plan (1) Acute alcoholic hepatitis: Code(s): K70.10 - Alcoholic hepatitis without ascites Status: Acute Assessment and Plan: The patient is clinically stable, did not have further evidence of withdrawal. She is safe to go home, will prescribed baclofen 10 mg t.i.d. to decrease the likelihood of alcohol cravings. She should see me in clinic in 1 month. Plan - Discharge on Baclofen 10 mg tid - complete abstinence from Alcohol - GI appt in 4 weeks Subjective Date/time seen: 10/17/24 07:24 Objective Data Vital Signs Vital Signs: Vital Signs - 24 hr 10/16/24 08:00 10/16/24 08:00 10/16/24 08:00 Temperature 97.7 F Pulse Rate 97 97 Pulse Rate [Bilateral Pedal (Dorsalis Pedis) Palpation] Pulse Rate [Bilateral Radial Palpation] 86 Pulse Rate [Monitor] Respiratory Rate 18 18 Blood Pressure 95/61 L 95/61 L Pulse Oximetry 98 98 Oxygen Delivery Room Air 10/16/24 10:38 10/16/24 16:00 10/16/24 20:00 Temperature 98.5 F 98.3 F Pulse Rate 101 H 96 Pulse Rate [Bilateral Pedal (Dorsalis Pedis) Palpation] Pulse Rate [Bilateral Radial Palpation] Pulse Rate [Monitor] Respiratory Rate 20 16 Blood Pressure 112/65 100/60 Pulse Oximetry 97 100 Oxygen Delivery Room Air 10/16/24 21:00 10/16/24 23:53 10/16/24 23:57 Temperature 98.0 F Pulse Rate 96 Pulse Rate [Bilateral Pedal (Dorsalis Pedis) Palpation] 96 Pulse Rate [Bilateral Radial Palpation] 96 Pulse Rate [Monitor] 96 Respiratory Rate 16 Blood Pressure 109/65 Pulse Oximetry 100 Oxygen Delivery Room Air 10/17/24 04:00 Temperature Pulse Rate Pulse Rate [Bilateral Pedal (Dorsalis Pedis) Palpation] 89 Pulse Rate [Bilateral Radial Palpation] 89 Pulse Rate [Monitor] 89 Respiratory Rate Blood Pressure 91/56 L Pulse Oximetry Oxygen Delivery Intake/Output Intake/Output: Intake & Output 10/14/24 10/15/24 10/16/24 10/17/24 23:59 23:59 23:59 23:59 Intake Total 440 1150 860 550 Output Total 2400 800 Balance -1960 350 860 550 Meds/Results Medications: Active Medications Generic Name Dose Route Start Last Admin Trade Name Freq PRN Reason Stop Dose Admin Chlordiazepoxide HCl 25 mg 10/14/24 06:00 10/17/24 06:25 Chlordiazepoxide (*Crx) 25 Mg Capsule PO 25 mg Q6HR ANTHONY Administration Enoxaparin Sodium 40 mg 10/15/24 09:00 10/16/24 08:33 Enoxaparin 40 Mg/0.4 Ml Syringe SUB-Q 40 mg DAILY ANTHONY Administration Furosemide 40 mg 10/15/24 09:00 10/16/24 08:33 Furosemide 40 Mg Tablet PO 40 mg DAILY ANTHONY Administration Lorazepam 2 mg 10/14/24 02:22 Lorazepam Inj (*Crx) 2 Mg/Ml Vial IV PUSH Q2H PRN CIWA > 15 Lorazepam 2 mg 10/14/24 02:22 10/14/24 03:44 Lorazepam Inj (*Crx) 2 Mg/Ml Vial IV PUSH 2 mg Q4H PRN Administration CIWA 8-15 Morphine Sulfate 2 mg 10/15/24 04:02 10/17/24 00:07 Morphine Sulfate (*Crx) 2 Mg/Ml Inj IV PUSH 2 mg Q4H PRN Administration Pain Rated 7-10 Multivitamins Therapeutic 1 tablet 10/14/24 09:00 10/16/24 08:33 Multivitamins Therapeutic Tab (*Bkc) PO 1 tablet DAILY ANTHONY Administration Nicotine 1 patch 10/14/24 09:00 10/16/24 08:33 Nicotine (*Pbkc) 14 Mg Patch TRANSDERM 1 patch DAILY ANTHONY Administration Spironolactone 25 mg 10/14/24 09:00 10/16/24 08:33 Spironolactone 25 Mg Tablet PO 25 mg QAM ANTHONY Administration Radiology Results: ITS Impressions Chest X-Ray 10/13/24 16:26 IMPRESSION: No focal infiltrate or effusion. Abdomen/Pelvis CT 10/13/24 17:17 IMPRESSION: 1. Combination of cirrhosis and diffuse hepatic steatosis. 2. Mild splenomegaly which along with gastroesophageal varices are consistent with secondary venous hypertension. 3. Moderate amount of ascites. 4. T-shaped IUD in expected position within the anteverted uterus. Paracentesis Ultrasound 10/14/24 15:44 IMPRESSION: 1. Successful ultrasound-guided paracentesis yielding 1700 mL of dark ramu- colored fluid. Labs Labs: Laboratory Results - last 24 hr 10/16/24 10/16/24 10/17/24 11:22 18:04 01:23 POC Capillary Glucose 93 111 H 123 H 10/17/24 05:50 POC Capillary Glucose 68
[2024-10-17] MEDS: MULTIVITAMINS THERAPEUTIC TAB (*BKC) 1 TABLET PO (08:05)
[2024-10-17] MEDS: FUROSEMIDE 40 MG TABLET PO (08:05)
[2024-10-17] MEDS: SPIRONOLACTONE 25 MG TABLET PO (08:05)
[2024-10-17] MEDS: ENOXAPARIN 40 MG/0.4 ML SYRINGE SUB-Q (08:11)
--- NOTE | 2024-10-17 10:59 | PC.NURSE ---
10/16/24 2345 Patient transferred to [facility] at 2345, personal belongings with patient.
[2024-10-17 11:49] LABS: Glucose Point of Care 76 mg/dl (65-105)
[2024-10-17 12:00] VITALS: BP 100/57; PULSE 97; RESP 16; TEMP 36.2; O2SAT 100
--- NOTE | 2024-10-17 14:06 | P.DS_ITS ---
DS: Admitting Diagnosis Discharge Date 10/17/24 Admitting Diagnosis Jaundice and abdominal swelling DS: Discharge Diagnosis Discharge Diagnosis (1) Acute alcoholic hepatitis: Code(s): K70.10 - Alcoholic hepatitis without ascites Status: Acute (2) Alcohol withdrawal: Qualifiers: Complication of substance-induced condition: uncomplicated Qualified Code(s): F10.930 - Alcohol use, unspecified with withdrawal, uncomplicated Code(s): F10.939 - Alcohol use, unspecified with withdrawal, unspecified Status: Acute (3) Alcoholic cirrhosis of liver with ascites: Code(s): K70.31 - Alcoholic cirrhosis of liver with ascites Status: Acute DS: Summary Hospital Course Hospital Course: 43-year-old female with a past medical history of longstanding alcohol abuse who presented to the ER with 2 weeks of jaundice and 1 week of abdominal distension. The patient reports that she started drinking alcohol at age 15. She has been drinking heavily since she was 18 and has been drinking daily since she was 24. She reports that she used to drink as much as 6-7 beers a day plus several shots of whiskey. He states that he she 6 months ago she cut back she to 4 alcoholic beverages a day to help avoid having DTs. He has her last alcoholic beverage he was on the night of the . She has noticed jaundice that started 2 weeks ago and then followed by the abdominal distension. She has some discomfort in the left lateral abdomen and in the back right flank. She denies any nausea or vomiting but she is having poor appetite. She denies any hematochezia or melena. She has not had any fevers or chills. She has noticed a rash to the dorsum of bilateral hands. She reports that her cheeks of her face have been erythematous and course in texture for about 6 months to a year. She has not had much urine output. She feels as if she may not be emptying her bladder all the way. She has had at prior episodes of alcohol withdrawal but has never had alcohol withdrawal seizures. The patient does not have a primary care physician. She stated that she thought she was having problems with her pancreas about 4 5 years ago but by the time she could actually get an appointment with a specialist her symptoms had resolved so she did not follow- up. She has had lower extremity edema that is been present for the last couple of months. She denies any confusion. Currently she was reporting some anxiety, tremors and sensitivity to bright light. She does not have a primary care physician and has not sought medical care in several years. She reports that she does not have a car which limits her ability to go to appointments. Patient was managed for alcohol withdrawal, placed on CIWA protocol and multivitamin. discharged today on PRN Librium 5mg x 3 days . Discharged on Baclofen to check alcohol cravings Also managed for Acute alcoholic hepatitis, liver cirrhosis with ascites. Patient underwent paracentesis and SBP ruled out. GI was consulted and she was initially placed on prednisone and with improvement it was discontinued. Patient was discharged on Spironolactone adn Lasix, GI will follow up and noted they will refer her to tansplant clinic at [facility]. Anemia was related to alcohol intake, B12/Folate within normal limits. hb stable at 8.9. F/u with PCP in 3-5 days F/u with GI as instructed Time Spent with Patient Time attestation: Total time spent providing and/or coordinating discharge services: DS: Data Data Completed and Pending Labs on day of discharge: Labs from last 24 hours 10/17/24 10/17/24 10/17/24 11:46 05:50 01:23 POC Capillary Glucose 76 68 123 H 10/16/24 18:04 POC Capillary Glucose 111 H Preliminary micro results at discharge 10/14/24 15:16 Anaerobic Culture - Preliminary Ascites Fluid Aerobic Culture - Preliminary 10/13/24 16:06 Blood Culture - Preliminary Blood 10/13/24 16:30 Blood Culture - Preliminary Blood Discharge Plan Discharge Attending physician on discharge: London Garrison Discharging Clinician: London Garrison Anticipated Discharge Date/Time: 10/17/24 13:43 Patient Disposition: Home Activity: as tolerated Diet: as tolerated and regular Patient Instructions: Antibiotic Form, Acute Liver Failure (DC) Patient Language: Slovak Stand Alone Forms: General Discharge Information Follow-up/Referrals: Marino Kiran MD [Physician] - (F/u with GI as instructed ) UNKNOWN,DOCTOR [Primary Care Provider] - (F/u with PCP in 3-5 days ) Discharge Medications: New chlordiazepoxide HCl 5 mg capsule 5 mg PO TID PRN (Reason: anxiety) 3 Days Qty: 7 0RF thiamine HCl (vitamin B1) 100 mg tablet 100 mg PO DAILY Qty: 30 0RF furosemide 40 mg Tablet 40 mg PO DAILY 30 Days Qty: 30 1RF spironolactone 100 mg tablet 100 mg PO DAILY Qty: 30 1RF Continued multivitamin [Daily Multi-Vitamin] Tablet 1 tablet PO DAILY Date of admission: 10/14/24 10:42 Primary Care Provider: UNKNOWN,DOCTOR Admitting Provider: Leobardo Waldrop Attending physician on admission: Leobardo Waldrop Condition: Serious
[2024-10-17 21:28] LABS: LDH Peritoneal Fluid. 91 U/L (<63)
[2024-10-18 12:53] LABS: Total Protein Peritoneal Fluid <3.0 g/dL
[2024-10-18 19:49] LABS: Albumin Peritoneal Fluid. 0.7 g/dL
== END 2024-10-17 16:20 | disposition home or self-care (01) | DRG 280 ==
LOC: ANHED 18:41 → ANHIMU 19:49 → ANH3MEDSUR 10-17 13:45 → ANHIMU 10-20 13:21
PROVIDERS: Internal Medicine; Internal Medicine Gastroenterology; Physician Assistant; Admitting Provider Internal Medicine; Emergency Provider Physician Assistant; Visit Provider Internal Medicine
DX: K70.11 Alcoholic hepatitis with ascites (principal); F10.139 Alcohol abuse with withdrawal, unspecified; K70.31 Alcoholic cirrhosis of liver with ascites; G25.2 Other specified forms of tremor; F10.10 Alcohol abuse, uncomplicated; D53.9 Nutritional anemia, unspecified; F41.9 Anxiety disorder, unspecified; F17.210 Nicotine dependence, cigarettes, uncomplicated
CPT/HCPCS: 36415; 49083; 71045; 74177; 80053; 80074; 81001; 81025; 82042; 82077; 82150; 82607; 82746; 82945; 82948; 83605; 83615; 83690; 83735; 83880; 84100; 84157; 84484; 85025; 85055; 85610; 85730; 87040; 87070; 87075; 87205; 89051; 93005; 96374; 96375; 97161; 97165; 97530; 97535; 99285; A9270; G0378; J1165; J1650; J2060; J2270; J2470; J3360; J3411; J7512; P9047; Q9967